=== PATIENT | male | born 1930 | race African-American/Black ===

== ENCOUNTER 2016-09-14 11:47 | Inpatient (IN) | payer MEDICARE, OTHER ==
[~2016-09-14] VITALS: Ht 185.4 cm; Wt 94.8 kg
[2016-09-14 11:58] LABS: BASOPHILS % (AUTO) 0.2 % (0.0-2.0); HEMATOCRIT 24 % (39-51); HEMOGLOBIN 7.9 g/dL (13.5-17.5); LYMPHOCYTES # (AUTO) 0.4 /CMM (0.8-4.8); MEAN CORPUSCULAR HEMOGLOBIN 30 PG (26.0-33.0); MEAN CORPUSCULAR HGB CONC 33 g/dl (31.0-36.0); MEAN CORPUSCULAR VOLUME 90 fL (80-96); MONOCYTES # (AUTO) 0.4 /CMM (0.1-1.30); MONOCYTES % (AUTO) 1.8 % (2.0-12.0); NEUTROPHILS # (AUTO) 19.3 /CMM (1.8-8.9); PLATELET COUNT (AUTO) 306 /CMM (150-450); RDW COEFFICIENT OF VARIATION 14.9 (11.5-15.0); RED BLOOD CELL COUNT(AUTO) 2.68 MIL/uL (4.5-6.0); WHITE BLOOD COUNT (AUTO) 20.1 K/uL (4.3-11.0)
[2016-09-14 12:10] LABS: CALCIUM, SERUM 8.4 mg/dL (8.5-10.1); CARBON DIOXIDE 26 mmol/L (21-32); CHLORIDE 107 mmol/L (98-107); CREATININE 1.6 mg/dL (0.6-1.3); GLUCOSE 95 mg/dL (74-106); SODIUM SERUM 139 mmol/L (136-145); UREA NITROGEN, BLOOD 49 mg/dL (7-18)
[2016-09-14 12:13] LABS: INR 1.01 (0.87-1.13); PROTHROMBIN TIME 10.5 SECS (9.5-12.7)
[2016-09-14 12:17] LABS: TROPONIN I 0.376 ng/mL (0.00-0.056)
[2016-09-14 12:26] LABS: ALANINE AMINOTRANSFERASE 22 U/L (12-78); ALBUMIN 2.3 g/dL (3.4-5.0); ALKALINE PHOSPHATASE 97 U/L (46-116); ASPARTATE AMINOTRANSFERASE 21 U/L (15-37); BILIRUBIN,DIRECT 0.1 mg/dL (0.0-0.2); BILIRUBIN,TOTAL 0.5 mg/dL (0.2-1.0); TOTAL PROTEIN, SERUM 7.3 g/dL (6.4-8.2)
[2016-09-14 12:27] LABS: APPEARANCE,URINE Slightly Cloudy (CLEAR); BILIRUBIN,URINE Negative (NEGATIVE); BLOOD, URINE Negative Ery/uL (NEGATIVE); COLOR,URINE Yellow (YELLOW); KETONES,URINE Negative (NEGATIVE); LEUKOCYTE ESTERASE ,URINE Small (NEGATIVE); NITRITE, URINE Negative (NEGATIVE); PROTEIN,URINE Trace mg/dl (NEGATIVE); UGLUCOSE Negative (NEGATIVE); UROBILINOGEN,URINE 0.2 EU/dL (0.2)
[2016-09-14 12:32] LABS: BACTERIA,URINE 3+ /HPF (None Seen); RBC,URINE NONE SEEN /HPF (0-2); SQUAMOUS EPITHELIAL CELL,UR None Seen /HPF (None Seen)
[2016-09-14 12:44] LABS: LYMPHOCYTES % (MANUAL) 1 % (16-48); NEUTROPHILS % (MANUAL) 99 (42-76)
[2016-09-14] MEDS ORDERED: IV SET PRIMARY PUMP SET 1 EA INFUS.SET MC ONE ×3 (12:56→16:46)
[2016-09-14] MEDS ORDERED: PIPERACILLIN /TAZOBACTAM 3.375 G VIAL IV ONE (12:56)
[2016-09-14] MEDS ORDERED: VIT1CAPS32 PO (12:57)
[2016-09-14] MEDS ORDERED: FOLI1TAB16 PO (12:57)
[2016-09-14] MEDS ORDERED: ASPI81TA2 PO (12:57)
[2016-09-14] MEDS ORDERED: MINO2.5T PO (12:57)
[2016-09-14] MEDS ORDERED: INSU3INS6 SQ (12:57)
[2016-09-14] MEDS ORDERED: FINA5TAB11 PO (12:57)
[2016-09-14] MEDS ORDERED: AMLO10TA2 PO (12:57)
[2016-09-14] MEDS ORDERED: METH250T11 PO (12:57)
[2016-09-14] MEDS ORDERED: TRAM50TA92 PO (12:57)
[2016-09-14] MEDS ORDERED: LEVO100T9 PO (12:57)
[2016-09-14] MEDS ORDERED: PANT40TA2 PO (12:57)
[2016-09-14] MEDS ORDERED: INSU100V3 SQ (12:57)
[2016-09-14] MEDS ORDERED: MEMA10TA PO (12:57)
[2016-09-14] MEDS ORDERED: BENA20TA2 PO (12:57)
[2016-09-14] MEDS ORDERED: ATOR10TA PO (12:57)
[2016-09-14] MEDS ORDERED: ACET-868 PO (12:57)
[2016-09-14] MEDS ORDERED: CLON0.1T PO (12:57)
[2016-09-14] MEDS ORDERED: DONE10TA4 PO (12:57)
[2016-09-14] MEDS ORDERED: DOXA8TAB2 PO (12:57)
[2016-09-14] MEDS ORDERED: LACT10SO PO (12:57)
[2016-09-14] MEDS ORDERED: PIPERACILLIN /TAZOBACTAM 3.375 G in IV D5W 50 ML IV ONE (13:00)
[2016-09-14] MEDS ORDERED: LEVOFLOXACIN 750 MG /D5W 150ML 750 MG in PREMIX 1 EA IV SCH (13:00)
[2016-09-14] MEDS ORDERED: VANCOMYCIN 1 GM in IV D5W 250 ML IV ONE (13:00)
[2016-09-14] MEDS ORDERED: LEVOFLOXACIN 750 MG /D5W 150ML 150 ML IV ONE (13:08)
[2016-09-14] MEDS ORDERED: CLONIDINE HCL 0.1 MG TABLET PO PRN (15:30)
[2016-09-14] MEDS ORDERED: ONDANSETRON HCL/PF 4 MG/2 ML VIAL IVP PRN (15:30)
[2016-09-14] MEDS ORDERED: DEXTROSE 50%-WATER 50 ML DISP.SYRIN IV PRN (15:30)
[2016-09-14] MEDS ORDERED: ACETAMINOPHEN 325 MG TABLET PO PRN (15:30)
[2016-09-14] MEDS ORDERED: Z GUARD REMEDY 2 OZ OINT TP PRN (15:30)
[2016-09-14] MEDS ORDERED: LACTULOSE 10 G/15 ML UDC (PYXIS) PO PRN (15:30)
[2016-09-14 16:00] VITALS: BP 110/54
[2016-09-14] MEDS ORDERED: FEE PK DOSING 1 MIN EA MC ONE (16:36)
[2016-09-14] MEDS: IV NS 0.9% 1,000 ML IV PRN (16:52)
[2016-09-14] MEDS ORDERED: VANCOMYCIN 0.75 GM in IV D5W 250 ML IV SCH (17:00)
[2016-09-14 17:43] VITALS: BP 110/54
[2016-09-14] MEDS: BLOOD SUGAR DIAGNOSTIC 1 EACH STRIP IN SCH ×2 (18:13→22:03)
[2016-09-14] MEDS: INSULIN REGULAR, HUMAN 100 UNIT/ML 3 ML VIAL SQ PRN (18:17)
[2016-09-14] MEDS: MINOXIDIL (2.5MG) 2.5 MG TABLET PO SCH (18:18)
[2016-09-14] MEDS: METHYLDOPA (250MG) 250 MG TABLET PO SCH (18:18)
[2016-09-14 20:00] VITALS: BP 124/58
[2016-09-14] MEDS ORDERED: SECONDARY IV SET 1 EA INFUS.SET MC ONE (21:34)
[2016-09-14] MEDS: CEFEPIME 2 GM in IV D5W 100 ML IV SCH (21:38)
[2016-09-14] MEDS: DONEPEZIL 5 MG TABLET PO SCH (21:58)
[2016-09-14] MEDS: ATORVASTATIN 10 MG TABLET PO SCH (21:58)
[2016-09-14] MEDS: DOXAZOSIN MESYLATE (4 MG) 4 MG TABLET PO SCH (21:58)
[2016-09-14] MEDS: INSULIN DETEMIR 100 UNIT/ML CARTRIDGE SQ SCH (22:08)
[2016-09-15] VITALS (12 sets, daily range): BP systolic 112–133; BP diastolic 53–66
[2016-09-15] MEDS ORDERED: SECONDARY IV SET 1 EA INFUS.SET MC ONE ×2 (05:54→13:09)
[2016-09-15] MEDS: VANCOMYCIN 1 GM in IV D5W 250 ML IV SCH (05:57)
[2016-09-15] MEDS: BLOOD SUGAR DIAGNOSTIC 1 EACH STRIP IN SCH ×4 (06:06→21:53)
[2016-09-15 07:06] LABS: EOSINOPHILS # (AUTO) 0.1 /CMM (0.0-0.7); EOSINOPHILS % (AUTO) 0.6 % (0.0-6.0); HEMATOCRIT 22 % (39-51); HEMOGLOBIN 7.2 g/dL (13.5-17.5); LYMPHOCYTES # (AUTO) 0.4 /CMM (0.8-4.8); LYMPHOCYTES % (AUTO) 3.9 % (20.0-44.0); MEAN CORPUSCULAR HEMOGLOBIN 30 PG (26.0-33.0); MEAN CORPUSCULAR HGB CONC 33 g/dl (31.0-36.0); MEAN CORPUSCULAR VOLUME 91 fL (80-96); MONOCYTES # (AUTO) 0.4 /CMM (0.1-1.30); MONOCYTES % (AUTO) 3.8 % (2.0-12.0); NEUTROPHILS # (AUTO) 10.5 /CMM (1.8-8.9); NEUTROPHILS % (AUTO) 91.7 % (43.0-81.0); PLATELET COUNT (AUTO) 250 /CMM (150-450); RDW COEFFICIENT OF VARIATION 16.4 (11.5-15.0); RED BLOOD CELL COUNT(AUTO) 2.38 MIL/uL (4.5-6.0); WHITE BLOOD COUNT (AUTO) 11.5 K/uL (4.3-11.0)
[2016-09-15 07:37] LABS: ALANINE AMINOTRANSFERASE 21 U/L (12-78); ALBUMIN 1.9 g/dL (3.4-5.0); ALKALINE PHOSPHATASE 84 U/L (46-116); ASPARTATE AMINOTRANSFERASE 18 U/L (15-37); BILIRUBIN,TOTAL 0.4 mg/dL (0.2-1.0); CARBON DIOXIDE 26 mmol/L (21-32); CHLORIDE 105 mmol/L (98-107); CREATININE 1.6 mg/dL (0.6-1.3); GLUCOSE 119 mg/dL (74-106); MAGNESIUM 1.7 mg/dL (1.8-2.4); PHOSPHORUS 4.3 mg/dL (2.5-4.9); POTASSIUM 4.9 mmol/L (3.5-5.1); SODIUM SERUM 138 mmol/L (136-145); TOTAL PROTEIN, SERUM 6.5 g/dL (6.4-8.2); UREA NITROGEN, BLOOD 49 mg/dL (7-18)
[2016-09-15 07:47] LABS: LDL 43 mg/dL (0-99)
[2016-09-15 08:04] LABS: CHOLESTEROL 94 mg/dL (<200); HDL CHOLESTEROL 40 mg/dL (40-60); THYROID STIMULATING HORMONE 12.451 uIU/mL (0.358-3.74); TRIGLYCERIDES 23 mg/dL (30-150)
[2016-09-15] MEDS: FOLIC ACID 1 MG TABLET PO SCH (09:48)
[2016-09-15] MEDS: MEMANTINE HCL 5 MG TABLET PO SCH (09:48)
[2016-09-15] MEDS: FINASTERIDE (5 MG) 5 MG TABLET PO SCH (09:48)
[2016-09-15] MEDS: PANTOPRAZOLE 40 MG TABLET.DR PO SCH (09:49)
[2016-09-15] MEDS: TRAMADOL HCL 50 MG TABLET PO SCH (09:49)
[2016-09-15] MEDS: LEVOTHYROXINE SODIUM 100 MCG TABLET PO SCH (09:49)
[2016-09-15] MEDS: ASPIRIN 81 MG TAB.CHEW PO SCH (09:49)
[2016-09-15] MEDS: BENAZEPRIL HCL 20 MG TABLET PO SCH (09:50)
[2016-09-15] MEDS: MINOXIDIL (2.5MG) 2.5 MG TABLET PO SCH ×2 (09:51→18:11)
[2016-09-15] MEDS: AMLODIPINE BESYLATE 10 MG TABLET PO SCH (09:52)
[2016-09-15] MEDS: CEFEPIME 2 GM in IV D5W 100 ML IV SCH ×2 (09:54→23:38)
[2016-09-15] MEDS ORDERED: Magnesium 1GM/D5W 100ML PREMIX 100 ML IV SCH (12:00)
[2016-09-15] MEDS: METHYLDOPA (250MG) 250 MG TABLET PO SCH ×2 (14:17→17:00)
[2016-09-15] MEDS ORDERED: BLOOD IV SET 1 EA INFUS.SET MC ONE (16:14)
[2016-09-15] MEDS ORDERED: IV NS 0.9% 250 ML IV ONE (16:14)
[2016-09-15] MEDS: LACTOBACILLUS RHAMNOSUS GG 1 EACH CAP.SPRINK PO SCH (18:11)
[2016-09-15] MEDS: INSULIN REGULAR, HUMAN 100 UNIT/ML 3 ML VIAL SQ PRN (21:55)
[2016-09-15] MEDS: INSULIN DETEMIR 100 UNIT/ML CARTRIDGE SQ SCH (22:00)
[2016-09-15] MEDS: DOXAZOSIN MESYLATE (4 MG) 4 MG TABLET PO SCH (22:41)
[2016-09-15] MEDS: ATORVASTATIN 10 MG TABLET PO SCH (22:41)
[2016-09-15] MEDS: DONEPEZIL 5 MG TABLET PO SCH (22:41)
[2016-09-16] MEDS ORDERED: SET RED CAP 1 EA INFUS.SET MC ONE (00:07)
[2016-09-16] MEDS: VANCOMYCIN 1 GM in IV D5W 250 ML IV SCH ×3 (00:21→19:45)
[2016-09-16] MEDS: IV NS 0.9% 1,000 ML IV PRN (00:21)
[2016-09-16 06:59] LABS: CALCIUM, SERUM 7.9 mg/dL (8.5-10.1); CARBON DIOXIDE 23 mmol/L (21-32); CHLORIDE 106 mmol/L (98-107); CREATININE 1.6 mg/dL (0.6-1.3); GLUCOSE 112 mg/dL (74-106); MAGNESIUM 1.9 mg/dL (1.8-2.4); PHOSPHORUS 4.2 mg/dL (2.5-4.9); POTASSIUM 4.8 mmol/L (3.5-5.1); SODIUM SERUM 137 mmol/L (136-145); UREA NITROGEN, BLOOD 50 mg/dL (7-18)
[2016-09-16 07:08] LABS: BASOPHILS % (AUTO) 0.2 % (0.0-2.0); EOSINOPHILS # (AUTO) 0.2 /CMM (0.0-0.7); EOSINOPHILS % (AUTO) 3.1 % (0.0-6.0); HEMATOCRIT 27 % (39-51); HEMOGLOBIN 8.9 g/dL (13.5-17.5); LYMPHOCYTES # (AUTO) 0.7 /CMM (0.8-4.8); LYMPHOCYTES % (AUTO) 8.6 % (20.0-44.0); MEAN CORPUSCULAR HEMOGLOBIN 30 PG (26.0-33.0); MEAN CORPUSCULAR HGB CONC 33 g/dl (31.0-36.0); MEAN CORPUSCULAR VOLUME 90 fL (80-96); MONOCYTES # (AUTO) 0.4 /CMM (0.1-1.30); MONOCYTES % (AUTO) 5.6 % (2.0-12.0); NEUTROPHILS # (AUTO) 6.6 /CMM (1.8-8.9); NEUTROPHILS % (AUTO) 82.5 % (43.0-81.0); PLATELET COUNT (AUTO) 255 /CMM (150-450); RDW COEFFICIENT OF VARIATION 16.3 (11.5-15.0); RED BLOOD CELL COUNT(AUTO) 2.94 MIL/uL (4.5-6.0)
[2016-09-16] MEDS: PANTOPRAZOLE 40 MG TABLET.DR PO SCH (07:30)
[2016-09-16] MEDS: BLOOD SUGAR DIAGNOSTIC 1 EACH STRIP IN SCH ×4 (07:30→21:12)
[2016-09-16 08:00] VITALS: BP 136/69
[2016-09-16] MEDS: TRAMADOL HCL 50 MG TABLET PO SCH ×2 (09:00→09:13)
[2016-09-16] MEDS: FINASTERIDE (5 MG) 5 MG TABLET PO SCH (09:06)
[2016-09-16] MEDS: ASPIRIN 81 MG TAB.CHEW PO SCH (09:06)
[2016-09-16] MEDS: FOLIC ACID 1 MG TABLET PO SCH (09:06)
[2016-09-16] MEDS: LEVOTHYROXINE SODIUM 100 MCG TABLET PO SCH (09:06)
[2016-09-16] MEDS: AMLODIPINE BESYLATE 10 MG TABLET PO SCH (09:06)
[2016-09-16] MEDS: LACTOBACILLUS RHAMNOSUS GG 1 EACH CAP.SPRINK PO SCH ×2 (09:06→17:11)
[2016-09-16] MEDS: BENAZEPRIL HCL 20 MG TABLET PO SCH (09:06)
[2016-09-16] MEDS: METHYLDOPA (250MG) 250 MG TABLET PO SCH ×2 (09:12→17:15)
[2016-09-16] MEDS: MEMANTINE HCL 5 MG TABLET PO SCH (09:13)
[2016-09-16] MEDS: MINOXIDIL (2.5MG) 2.5 MG TABLET PO SCH ×2 (09:13→17:12)
[2016-09-16] MEDS: CEFEPIME 2 GM in IV D5W 100 ML IV SCH ×2 (09:18→20:58)
[2016-09-16 16:00] VITALS: BP 144/59
[2016-09-16 20:00] VITALS: BP 125/55
[2016-09-16] MEDS ORDERED: IV NS 0.9% 1,000 ML ONE (20:12)
[2016-09-16 20:28] VITALS: BP 123/55
[2016-09-16] MEDS: DONEPEZIL 5 MG TABLET PO SCH (21:07)
[2016-09-16] MEDS: DOXAZOSIN MESYLATE (4 MG) 4 MG TABLET PO SCH (21:09)
[2016-09-16] MEDS: ATORVASTATIN 10 MG TABLET PO SCH (21:09)
[2016-09-16] MEDS: INSULIN REGULAR, HUMAN 100 UNIT/ML 3 ML VIAL SQ PRN (21:11)
[2016-09-16] MEDS: INSULIN DETEMIR 100 UNIT/ML CARTRIDGE SQ SCH (22:00)
[2016-09-17 06:29] LABS: BASOPHILS % (AUTO) 0.2 % (0.0-2.0); EOSINOPHILS # (AUTO) 0.2 /CMM (0.0-0.7); HEMATOCRIT 25 % (39-51); HEMOGLOBIN 8.6 g/dL (13.5-17.5); LYMPHOCYTES # (AUTO) 0.7 /CMM (0.8-4.8); LYMPHOCYTES % (AUTO) 7.7 % (20.0-44.0); MEAN CORPUSCULAR HEMOGLOBIN 31 PG (26.0-33.0); MEAN CORPUSCULAR HGB CONC 34 g/dl (31.0-36.0); MEAN CORPUSCULAR VOLUME 90 fL (80-96); MONOCYTES # (AUTO) 0.5 /CMM (0.1-1.30); MONOCYTES % (AUTO) 5.5 % (2.0-12.0); NEUTROPHILS # (AUTO) 7.9 /CMM (1.8-8.9); NEUTROPHILS % (AUTO) 84.6 % (43.0-81.0); PLATELET COUNT (AUTO) 260 /CMM (150-450); RED BLOOD CELL COUNT(AUTO) 2.82 MIL/uL (4.5-6.0); WHITE BLOOD COUNT (AUTO) 9.3 K/uL (4.3-11.0)
[2016-09-17 06:42] LABS: CALCIUM, SERUM 7.9 mg/dL (8.5-10.1); CARBON DIOXIDE 23 mmol/L (21-32); CHLORIDE 105 mmol/L (98-107); CREATININE 1.5 mg/dL (0.6-1.3); GLUCOSE 93 mg/dL (74-106); MAGNESIUM 1.9 mg/dL (1.8-2.4); PHOSPHORUS 3.9 mg/dL (2.5-4.9); POTASSIUM 4.8 mmol/L (3.5-5.1); SODIUM SERUM 137 mmol/L (136-145); UREA NITROGEN, BLOOD 50 mg/dL (7-18)
[2016-09-17] MEDS: BLOOD SUGAR DIAGNOSTIC 1 EACH STRIP IN SCH ×2 (07:15→12:25)
[2016-09-17 08:00] VITALS: BP_SYST 119; BP_DIAS 62; BP_DIAS 92
[2016-09-17] MEDS: FOLIC ACID 1 MG TABLET PO SCH (08:26)
[2016-09-17] MEDS: PANTOPRAZOLE 40 MG TABLET.DR PO SCH (08:26)
[2016-09-17] MEDS: ASPIRIN 81 MG TAB.CHEW PO SCH (08:26)
[2016-09-17] MEDS: FINASTERIDE (5 MG) 5 MG TABLET PO SCH (08:27)
[2016-09-17] MEDS: LACTOBACILLUS RHAMNOSUS GG 1 EACH CAP.SPRINK PO SCH (08:27)
[2016-09-17] MEDS: LEVOTHYROXINE SODIUM 100 MCG TABLET PO SCH (08:27)
[2016-09-17] MEDS: MEMANTINE HCL 5 MG TABLET PO SCH (08:27)
[2016-09-17] MEDS: MINOXIDIL (2.5MG) 2.5 MG TABLET PO SCH (08:27)
[2016-09-17] MEDS: METHYLDOPA (250MG) 250 MG TABLET PO SCH (08:28)
[2016-09-17] MEDS ORDERED: AMPI500C11 PO (08:58)
[2016-09-17 09:00] VITALS: BP 109/60
[2016-09-17] MEDS: AMLODIPINE BESYLATE 10 MG TABLET PO SCH (09:00)
[2016-09-17] MEDS: BENAZEPRIL HCL 20 MG TABLET PO SCH (09:00)
[2016-09-17] MEDS: TRAMADOL HCL 50 MG TABLET PO SCH (09:00)
[2016-09-17] MEDS: CEFEPIME 2 GM in IV D5W 100 ML IV SCH (09:23)
[2016-09-17] MEDS: INSULIN REGULAR, HUMAN 100 UNIT/ML 3 ML VIAL SQ PRN (12:28)
== END 2016-09-17 13:15 | DRG 871 ==
LOC: ER 11:50 → MED 14:22
PROVIDERS: ADMIT Nurse Practitioner Acute Care; ATTEND Nurse Practitioner Acute Care
PROC: 30233N1 Transfusion of Nonautologous Red Blood Cells into Peripheral Vein, Percutaneous Approach (ICD-10-PCS; principal; 2016-09-15)
DX: A41.9 Sepsis, unspecified organism (principal); J18.9 Pneumonia, unspecified organism; I21.4 Non-ST elevation (NSTEMI) myocardial infarction; J96.01 Acute respiratory failure with hypoxia; N17.0 Acute kidney failure with tubular necrosis; N39.0 Urinary tract infection, site not specified; J90 Pleural effusion, not elsewhere classified; Z66 Do not resuscitate; Z51.5 Encounter for palliative care; R65.20 Severe sepsis without septic shock; B95.2 Enterococcus as the cause of diseases classified elsewhere; D63.8 Anemia in other chronic diseases classified elsewhere; E03.9 Hypothyroidism, unspecified; E78.5 Hyperlipidemia, unspecified; E88.09 Other disorders of plasma-protein metabolism, not elsewhere classified; K21.9 Gastro-esophageal reflux disease without esophagitis; N18.9 Chronic kidney disease, unspecified; I12.9 Hypertensive chronic kidney disease with stage 1 through stage 4 chronic kidney disease, or unspecified chronic kidney disease; N40.1 Benign prostatic hyperplasia with lower urinary tract symptoms; E11.22 Type 2 diabetes mellitus with diabetic chronic kidney disease; F03.90 Unspecified dementia, unspecified severity, without behavioral disturbance, psychotic disturbance, mood disturbance, and anxiety; L89.152 Pressure ulcer of sacral region, stage 2; L89.322 Pressure ulcer of left buttock, stage 2; S81.802A Unspecified open wound, left lower leg, initial encounter; S81.801A Unspecified open wound, right lower leg, initial encounter; X58.XXXA Exposure to other specified factors, initial encounter; Y93.9 Activity, unspecified; Y92.129 Unspecified place in nursing home as the place of occurrence of the external cause; L89.611 Pressure ulcer of right heel, stage 1
CPT/HCPCS: 36415; 71010-TC; 76770-TC; 80048-TC; 80053-TC; 80061-TC; 80076-TC; 80202-TC; 81000-TC; 82962-TC; 83605-TC; 83735-TC; 84100-TC; 84443-TC; 84484-TC; 85025-TC; 85730-TC; 86850-TC; 86921-TC; 87040-TC; 87081-TC; 87086-TC; 87186-TC; 94799-TC; A4216; A4606; J0692; J1815; J1956; J2543; J3370; J3475; J7030; J7050; J7060; P9016-BL; Z7610

== ENCOUNTER 2016-11-01 22:18 | Inpatient (IN) | payer MEDICARE, OTHER ==
[~2016-11-01] VITALS: Ht 185.4 cm; Wt 104.3 kg
[~2016-11-01 22:18] MED LIST: ACET-868 PO; AMLO10TA2 PO; AMPI500C11 PO; ASPI81TA2 PO; ATOR10TA PO; BENA20TA2 PO; CLON0.1T PO; DONE10TA4 PO; DOXA8TAB2 PO; FINA5TAB11 PO; FOLI1TAB16 PO; INSU100V3 SQ; INSU3INS6 SQ; LACT10SO PO; LEVO100T9 PO; MEMA10TA PO; METH250T11 PO; MINO2.5T PO; PANT40TA2 PO; TRAM50TA92 PO; VIT1CAPS32 PO
--- NOTE | 2016-11-01 22:25 | NUR ---
TO BED 3 AN 86 YO MALE PATIENT BB AMBULANCE FROM [facility]; INCREASED ALOC. UPON ARRIVAL TO ER, PATIENT IS AWAKE, RESPONSIVE TO LIGHT PAIN, DOES NOT FOLLOW INSTRUCTIONS, DOES NOT ANSWER TO QUESTIONS, AND VERBALIZED UNCOMPREHENSIBLE WORDS. BREATHING EVEN AND UNLABORED. NONDIAPHORETIC, AFEBRILE, NSR ON THE MONITOR, BP IS 85/49. ONGOING CARDIAC AND VS MONITORING. NOTED WITH ENLARGE SCROTUM. GOWNED. DR BARBOSA AT BEDSIDE TO [facility].
[2016-11-01] MEDS ORDERED: IV NS 0.9% 1,000 ML BAG IV ONE (22:30)
[2016-11-01 23:09] LABS: SERUM AMMONIA 20 umol/L (11-32)
[2016-11-01 23:11] LABS: BASOPHILS % (AUTO) 0.3 % (0.0-2.0); EOSINOPHILS % (AUTO) 0.1 % (0.0-6.0); HEMATOCRIT 24 % (39-51); HEMOGLOBIN 7.8 g/dL (13.5-17.5); LYMPHOCYTES # (AUTO) 0.8 /CMM (0.8-4.8); LYMPHOCYTES % (AUTO) 12.4 % (20.0-44.0); MEAN CORPUSCULAR HEMOGLOBIN 29 PG (26.0-33.0); MEAN CORPUSCULAR HGB CONC 32 g/dl (31.0-36.0); MEAN CORPUSCULAR VOLUME 91 fL (80-96); MONOCYTES # (AUTO) 0.2 /CMM (0.1-1.30); MONOCYTES % (AUTO) 3.4 % (2.0-12.0); NEUTROPHILS # (AUTO) 5.5 /CMM (1.8-8.9); NEUTROPHILS % (AUTO) 83.8 % (43.0-81.0); PLATELET COUNT (AUTO) 111 /CMM (150-450); RDW COEFFICIENT OF VARIATION 19.6 (11.5-15.0); RED BLOOD CELL COUNT(AUTO) 2.65 MIL/uL (4.5-6.0); WHITE BLOOD COUNT (AUTO) 6.6 K/uL (4.3-11.0)
[2016-11-01 23:15] LABS: TROPONIN I 0.135 ng/mL (0.00-0.056)
[2016-11-01 23:20] LABS: ACETAMINOPHEN 2 ug/ml (10-30); ALANINE AMINOTRANSFERASE 32 U/L (12-78); ALBUMIN 2.6 g/dL (3.4-5.0); ALKALINE PHOSPHATASE 83 U/L (46-116); ASPARTATE AMINOTRANSFERASE 34 U/L (15-37); BILIRUBIN,DIRECT 0.2 mg/dL (0.0-0.2); BILIRUBIN,TOTAL 0.8 mg/dL (0.2-1.0); CALCIUM, SERUM 7.8 mg/dL (8.5-10.1); CARBON DIOXIDE 31 mmol/L (21-32); CHLORIDE 101 mmol/L (98-107); CREATININE 4.2 mg/dL (0.6-1.3); GLUCOSE 123 mg/dL (74-106); POTASSIUM 4.7 mmol/L (3.5-5.1); SODIUM SERUM 139 mmol/L (136-145); THYROID STIMULATING HORMONE 12.367 uIU/mL (0.358-3.74); TOTAL PROTEIN, SERUM 5.8 g/dL (6.4-8.2)
[2016-11-01 23:21] LABS: ALCOHOL, BLOOD < 3 mg/dL (0-0)
[2016-11-01 23:22] LABS: UREA NITROGEN, BLOOD 86 mg/dL (7-18)
--- NOTE | 2016-11-01 23:23 | NUR ---
patient taken to ct,.
[2016-11-01 23:46] LABS: BAND % (MANUAL) 40 % (0.0-5.0); LYMPHOCYTES % (MANUAL) 14 % (16-48); MONOCYTES % (MANUAL) 1 % (0-11.0); NEUTROPHILS % (MANUAL) 43 (42-76); PROMYELOCYTES % 1 % (0-0); REACTIVE LYMPHOCYTES 1 % (0-0)
[2016-11-01 23:49] LABS: B-TYPE NATRIURETIC PEPTIDE 23424 PG/ML (0-125)
[2016-11-02] VITALS (89 sets, daily range): BP systolic 74–154; BP diastolic 34–87
[2016-11-02 00:25] LABS: INR 1.17 (0.87-1.13); PROTHROMBIN TIME 12.6 SECS (9.5-12.7)
[2016-11-02] MEDS ORDERED: ASPIRIN 300 MG/SUPP.RECT RC ONE ×2 (00:30→00:32)
--- NOTE | 2016-11-02 00:30 | NUR ---
RT FINA AT BEDSIDE AND PATIENT WAS PLACED ON BIPAP INH W FOLLOWING SETTINGS, 15/5, RATE 20, FIO2 40%, SATTING AT 96% AT THIS TIME. KEPT HOB ELEVATED. WILL CONTINUE TO MONITOR.
[2016-11-02] MEDS ORDERED: FEE EMEERGENCY 1 MIN EA MC ONE (01:00)
[2016-11-02] MEDS ORDERED: PROPOFOL 100 ML IV ONE ×3 (01:13→06:59)
--- NOTE | 2016-11-02 01:20 | NUR ---
0105 - RECEIVED ORDER FROM DR BARBOSA FOR INTUBATION. RT FINA AND RT MEMO AT BEDSIDE. 0110 - ETOMIDATE 30MG, AND ROCS 100MG GIVEN IVP ON THE LAC G18 PRIOR TO INTUBATION. 0113 - DR BARBOSA PLACED ETT 8CM AND 23CM ON THE LIP. GUILLAUME LUNG SOUNDS HEARD, COLOR CHANGE NOTED ON CAPNO. SATTING AT 98% AT THIS TIME. ONGOING MONITOR.
--- NOTE | 2016-11-02 01:25 | NUR ---
RECEIVED ORDERS FROM DR BARBOSA TO GIVEN 2L OF NS BOLUS, WILL CARRY OUT.
[2016-11-02] MEDS ORDERED: ETOMIDATE 2 MG/ML VIAL IV ONE (01:30)
[2016-11-02] MEDS ORDERED: ROCURONIUM BROMIDE 100 MG/10 ML VIAL IV ONE (01:30)
--- NOTE | 2016-11-02 01:32 | NUR ---
CALLED LAB TO VERIFY URINE LABEL AND CORRECTED MISTAKE. SAMPLE MISLABELLED. PLEASE DISREGARD URINE RESULTS DATED 11/02/[address] BARBOSA NOTIFIED.
--- NOTE | 2016-11-02 01:35 | NUR ---
RECEIVED ORDERS FOR PROPOFOL DRIP WITH TITRATION PER PROTOCOL.
[2016-11-02 02:09] LABS: ABG BASE EXCESS 3.8 mmol/L; ABG OXYGEN SATURATION 64.2 % (92.0-98.5); ABG PCO2 52.7 mmHg (35.0-45.0); ABG PH 7.369 (7.350-7.450); ABG PO2 35.5 mmHg (75.0-100.0); COHb 1.7 % (0.5-1.5); MetHb 0.8 % (0.0-1.5); O2Hb 62.6 % (94.0-97.0); PEEP,BG 5 cm H2O; SITE, ABG A-Line; VENT MODE, BG A/C 20 500 90% +5; VT, ABG 500 mL
--- NOTE | 2016-11-02 02:19 | NUR ---
IRASEMA TRINIDAD COLLECTIONS ANALYST AT BEDSIDE EVAL.
--- NOTE | 2016-11-02 02:20 | NUR ---
REPORT GIVEN TO THOMAS BUSTAMANTE FOR ICU ADMISSION AND EVELYNE.
--- NOTE | 2016-11-02 02:40 | NUR ---
urine collected from read of about 3cc reddish urine, called lab for machine pecan picker.
--- NOTE | 2016-11-02 02:44 | NUR ---
TRANSFERRED PATIENT TO ICU ROOM 253 VIA ALS PROTOCOL, NO INCIDENT NOTED. MAINTAINED PATENT AIRWAY, VSS. SELAM BUSTAMANTE AT BEDSIDE. DR BARBOSA NOTIFIED DIGITAL ANALYST IRASEMA TRINIDAD VIA PHONE TO DISREGARD FIRST URINE THAT RESULTED IT IS A MISTAKE.
[2016-11-02 02:58] LABS: APPEARANCE,URINE CLOUDY (CLEAR); BILIRUBIN,URINE 2+ (NEGATIVE); BLOOD, URINE 3+ Ery/uL (NEGATIVE); COLOR,URINE BROWN (YELLOW); KETONES,URINE 1+ (NEGATIVE); LEUKOCYTE ESTERASE ,URINE 1+ (NEGATIVE); NITRITE, URINE POSITIVE (NEGATIVE); PROTEIN,URINE 3+ mg/dl (NEGATIVE); UGLUCOSE NEGATIVE (NEGATIVE)
[2016-11-02] MEDS ORDERED: ACETAMINOPHEN 325 MG TABLET PO PRN (03:00)
[2016-11-02] MEDS ORDERED: MAGNESIUM HYDROXIDE 30 ML UDC PO PRN (03:00)
[2016-11-02] MEDS ORDERED: ONDANSETRON HCL/PF 4 MG/2 ML VIAL IVP PRN (03:00)
[2016-11-02] MEDS ORDERED: MAG HYDROX/AL HYDROX/SIMETH 30 ML UDC PO PRN (03:00)
--- NOTE | 2016-11-02 03:00 | NUR ---
REGIONAL TRAINER - NOTES - PT ADMITTED TO ICU FOR RESP FAILURE, INTUBATED. SEDATED ON DIPRIVAN. PT WAS GIVEN 2.7 L IN ER. PT IS IN SR HR 70S, SBP >90. PT HAS 8.0 ETT/ 23 AT LIP, AC 20 500 100% 5.0. PT HAS F/C WITH MINIMAL URINE OUTPUT SPARKLE. PT IS HAVING MUCOID FOUL SMELLING DIARRHEA. PT HAS R AC 18G AND L AC 18G. SKIN ISSUES NOTED, 2CM SACRAL PRESSURE ULCER. WILL CONTINUE TO MONITOR
[2016-11-02 03:12] LABS: BACTERIA,URINE 3+ /HPF (None Seen); RBC,URINE TOO NUMEROUS TO COUN /HPF (0-2); SQUAMOUS EPITHELIAL CELL,UR Rare /HPF (None Seen)
[2016-11-02 03:14] LABS: URINE AMORPHOUS URATE Moderate /HPF (None Seen)
[2016-11-02] MEDS ORDERED: LEVOFLOXACIN 500 MG /D5W 100ML 100 ML IV ONE (03:28)
[2016-11-02] MEDS ORDERED: LEVOFLOXACIN 500 MG /D5W 100ML 500 MG in PREMIX 1 EA IV SCH (03:30)
[2016-11-02] MEDS: IV NS 0.9% 250 ML IV PRN (03:39)
[2016-11-02] MEDS ORDERED: CEFEPIME 1 GM VIAL ONE (03:39)
[2016-11-02] MEDS: PROPOFOL 100 ML IV PRN ×3 (04:18→17:24)
[2016-11-02] MEDS ORDERED: CEFEPIME 2 GM in IV D5W 100 ML IV SCH (05:00)
[2016-11-02] MEDS ORDERED: VANCOMYCIN 1 GM VIAL ONE (05:50)
--- NOTE | 2016-11-02 05:54 | NUR ---
CALLED [facility]IST BEAUTY THERAPIST TO DOSE VANCO, HE SAID TO GIVE 1G OF VANCO NOW, PHARMACY WILL FIGURE OUT SCHEDULE LATER
[2016-11-02] MEDS ORDERED: VANCOMYCIN 1 GM in IV D5W 250 ML IV SCH (06:00)
[2016-11-02 06:01] LABS: ABG BASE EXCESS 6.4 mmol/L; ABG OXYGEN SATURATION 96.7 % (92.0-98.5); ABG PCO2 44.1 mmHg (35.0-45.0); ABG PH 7.462 (7.350-7.450); ABG PO2 101.3 mmHg (75.0-100.0); AaDO2 422.8 mmHg; COHb 0.8 % (0.5-1.5); PEEP,BG 5 cm H2O; SITE, ABG Right Radial
--- NOTE | 2016-11-02 06:04 | NUR ---
ABG DONE. RN NOTIFIED WITH THE RESULT. pH 7.46, CO2 44, PaO2 101, HCO3 30.
--- NOTE | 2016-11-02 07:27 | NUR ---
INITIAL SOCIAL WELFARE ADMINISTRATOR NOTE RCVD PT SEDATED ON DIPRIVAN, INTUBATED. ETT 8.0 23 AT LIP. SHOWING NO S/O DISTRESS OR PAIN. SR ON TELE MONITOR. TOLERATING ORDERED VENT SETTINGS WELL. BILATERAL SOFT WRISTS RESTRAINTS IN PLACE. CIRCULATION CHECKS PERFORMED. LINN IN PLACE DRAINING CONCENTRATED URINE. IV SITES C/D/I/PATENT. NO S/O INFILTRATION/PHLEBITIS OBSERVED. IVF INFUSING. PT NPO AT THIS TIME. WILL CONTINUE TO MONITOR FOR SAFETY AND COMFORT. BED IN LOW AND LOCKED POSITION.
[2016-11-02] MEDS: LEVOTHYROXINE SODIUM 100 MCG TABLET PO SCH (07:30)
[2016-11-02] MEDS: PANTOPRAZOLE 40 MG TABLET.DR PO SCH (07:30)
[2016-11-02] MEDS ORDERED: IV NS 0.9% 500 ML IV ONE ×3 (08:30→16:00)
[2016-11-02] MEDS ORDERED: IV NS 0.9% 1,000 ML BAG IV PRN (08:30)
--- NOTE | 2016-11-02 08:30 | NUR ---
HORSESHOER NOTE EPIC PAGED. SPOKE WITH DR. CANELA, PT'S SBP 70-80s. SEDATION DISCONTINUED FOR SEDATION VACATION. PT AWAKE AND ALERT TO SELF, ABLE TO FOLLOW COMMANDS. RCVD ORDER FROM DR. CANELA TO GIVE NS BOLUS AND START PT ON IVF. ORDERS CARRIED OUT. WILL CONTINUE TO MONITOR. PT'S SON, AIDEN CALLED INQUIRING ABOUT PT. HE WAS UPDATED ON PT'S CONDITION.
[2016-11-02] MEDS: MEMANTINE HCL 5 MG TABLET PO SCH (09:00)
[2016-11-02] MEDS: IV NS 0.9% 1,000 ML IV PRN ×2 (09:00→18:28)
[2016-11-02] MEDS: ASPIRIN 81 MG TAB.CHEW PO SCH (09:00)
[2016-11-02] MEDS: ASCORBIC ACID 500 MG TABLET PO SCH (09:00)
[2016-11-02] MEDS ORDERED: LACTULOSE 10 G/15 ML UDC (PYXIS) PO PRN (09:00)
[2016-11-02] MEDS: FINASTERIDE (5 MG) 5 MG TABLET PO SCH (09:00)
[2016-11-02] MEDS: FOLIC ACID 1 MG TABLET PO SCH (09:00)
[2016-11-02] MEDS ORDERED: METHYLDOPA (250MG) 250 MG TABLET PO SCH (09:00)
[2016-11-02] MEDS ORDERED: FEE PK DOSING 1 MIN EA MC ONE (09:01)
--- NOTE | 2016-11-02 09:17 | NUR ---
FIBER OPTIC ASSEMBLY WORKER NOTE IRASEMA MECHANICAL TECHNICAL SERVICE SPECIALIST AT PT'S BEDSIDE INFORMED THAT PT'S BLOOD IN URINE. LOW UOP OF 20 ML SO FAR ON MY SHIFT AND 15ML SINCE ADMISSION IN ICU FOR JAW SKINNER. RENAL LABS TRENDING UP. HE STATED THAT WILL CONSULT NEPHRO. HE WAS UPDATED ABOUT PT'S LOW SBP EARLIER THIS AM AND IVF ORDERS BEING CARRIED OUT. IRASEMA AWARE OF PT'S HGB 7.8, HE'LL ORDER REPEAT LABS FOR TODAY. NO MEDS UNTIL CLEARED BY DR. OSHEA. NO NG TUBE AT THIS TIME. PICC LINE ORDER REQUESTED. CONSENT OBTAINED FROM PT'S SONAIDEN OVER THE PHONE. Addendum: 11/02/16 at 1607 by EN PALOMO RN PER NIGEL, SENIOR COMMERCIAL LOAN OFFICER PHILLIP ACOSTA TO COME AND INSERT PICC LINE.
[2016-11-02 09:45] LABS: BASOPHILS % (AUTO) 0.3 % (0.0-2.0); HEMATOCRIT 24 % (39-51); HEMOGLOBIN 7.8 g/dL (13.5-17.5); LYMPHOCYTES # (AUTO) 0.7 /CMM (0.8-4.8); LYMPHOCYTES % (AUTO) 11.3 % (20.0-44.0); MEAN CORPUSCULAR HEMOGLOBIN 30 PG (26.0-33.0); MEAN CORPUSCULAR HGB CONC 32 g/dl (31.0-36.0); MEAN CORPUSCULAR VOLUME 92 fL (80-96); MONOCYTES # (AUTO) 0.5 /CMM (0.1-1.30); MONOCYTES % (AUTO) 8.5 % (2.0-12.0); NEUTROPHILS % (AUTO) 79.9 % (43.0-81.0); PLATELET COUNT (AUTO) 111 /CMM (150-450); RDW COEFFICIENT OF VARIATION 19.5 (11.5-15.0); RED BLOOD CELL COUNT(AUTO) 2.62 MIL/uL (4.5-6.0); WHITE BLOOD COUNT (AUTO) 6.2 K/uL (4.3-11.0)
[2016-11-02 09:55] LABS: CALCIUM, SERUM 7.6 mg/dL (8.5-10.1); CARBON DIOXIDE 29 mmol/L (21-32); CHLORIDE 102 mmol/L (98-107); CREATININE 4.3 mg/dL (0.6-1.3); GLUCOSE 115 mg/dL (74-106); MAGNESIUM 1.7 mg/dL (1.8-2.4); PHOSPHORUS 4.2 mg/dL (2.5-4.9); POTASSIUM 4.5 mmol/L (3.5-5.1); SODIUM SERUM 140 mmol/L (136-145)
--- NOTE | 2016-11-02 09:57 | NUR ---
WOUND CARE CONSULT PATIENT SEEN AND SKIN INTEGRITY ASSESSMENT DONE. PLEASE SEE CREASING AND CUTTING PRESS FEEDER ASSESSMENT IN PCS ALONG WITH ALL RECOMMENDATIONS FOR TODAY. PATIENT WITH CURRENT SHELDON AT 10. PATIENT ON JAVIER ISOFLEX LOW AIRSS SPECIALTY BED FOR SKIN MANAGMENT AND TREATMENT. ALL TREATMENT PLANS DISCUSSED WITH ACNP AND IN AGREEMENT. ALL DISCUSSED WITH NURSING AT THE BEDSIDE. PATIENT NOTED TO HAVE MULTIPLE CO-MORBIDITIES AT THIS TIME. Addendum: 11/02/16 at 0959 by ALANIS NIELSON WNDNU Amended: Links added.
[2016-11-02 09:58] LABS: UREA NITROGEN, BLOOD 83 mg/dL (7-18)
[2016-11-02] MEDS ORDERED: HYDROGEL DRESSING 90 GM TUBE TP PRN (10:00)
[2016-11-02 10:08] LABS: BAND % (MANUAL) 46 % (0.0-5.0); LYMPHOCYTES % (MANUAL) 6 % (16-48); MONOCYTES % (MANUAL) 4 % (0-11.0); NEUTROPHILS % (MANUAL) 44 (42-76)
[2016-11-02] MEDS ORDERED: FUROSEMIDE 40 MG/4 ML VIAL IV ONE (10:30)
--- NOTE | 2016-11-02 11:24 | NUR ---
PT ORALLY INTUBATED WITH 8.0 ET-TUBE SECURED AT 23CM. SETTINGS CHANGED BY DR. OSHEA AC 14, 450 PEEP 5 KEEP SATS ABOVE 94%. PT SEDATED. B/S EQUAL ALARMS SET AND AUDIBLE. ZERO DISTRESS NOTED AT THIS TIME AMBUBAG AT HEAD OF BED. ABG IN AM PER DR OSHEA.
--- NOTE | 2016-11-02 12:41 | NUR ---
ELECTRICIAN'S HELPER NOTE PT'S SBP 70-80s LISSETH VILLALPANDO INFORMED. RCVD ORDER TO GIVE 2ND BOLUS OF NS. WILL CONTINUE TO MONITOR. Addendum: 11/02/16 at 1607 by EN PALOMO RN PHILLIP SOLORZANO TO COME AND INSERT PICC LINE. CONSENT IN CHART.
[2016-11-02] MEDS: HYDROGEL DRESSING 90 GM TUBE TP SCH (13:45)
[2016-11-02] MEDS ORDERED: BUMETANIDE INJ 0.25 MG/ML VIAL IV ONE (15:30)
--- NOTE | 2016-11-02 15:47 | NUR ---
FOREST FIRE WARDEN NOTE PT HYPOTENSIVE AGAIN. LISSETH VILLALPANDO CALLED 3RD ORDER FOR NS BOLUS RCVD AND CARRIED OUT. WILL CONTINUE TO MONITOR PT. PICC LINE INSERTION PENDING PHILLIP ACOSTA TO COME AND INSERT. IRASEMA AWARE THAT LINE IS NOT AVAILABLE YET.
[2016-11-02] MEDS ORDERED: Magnesium 1GM/D5W 100ML PREMIX PIGGYBACK IV STA (17:40)
--- NOTE | 2016-11-02 18:51 | NUR ---
ENDING BRAND SALES CONSULTANT NOTE PT REMAINS INTUBATED, VITAL SIGNS STABLE AT THIS TIME. ST/SR ON TELE. RESTRAINTS IN PLACE. TOLERATING ORDERED VENT SETTINGS. LINN DRAINING TEA COLORED URINE. IV SITES C/D/I/PATENT. PT'S CARE ENDORSED TO SHIPWRIGHT SUPERVISOR RN FOR CONTINUITY OF CARE. BED IN LOW AND LOCKED POSITION.
[2016-11-02] MEDS: NOREPINEPHRINE 16 MG in IV D5W 500 ML IV PRN (20:04)
[2016-11-02] MEDS: INSULIN DETEMIR 100 UNIT/ML CARTRIDGE SQ SCH (21:05)
[2016-11-02] MEDS: ATORVASTATIN 10 MG TABLET PO SCH (21:05)
[2016-11-02] MEDS ORDERED: DONEPEZIL 5 MG TABLET PO SCH (22:00)
[2016-11-03] VITALS (107 sets, daily range): BP systolic 79–151; BP diastolic 30–72
[2016-11-03] MEDS: PROPOFOL 100 ML IV PRN ×5 (00:07→23:59)
[2016-11-03 04:44] LABS: BASOPHILS % (AUTO) 0.1 % (0.0-2.0); EOSINOPHILS % (AUTO) 0.7 % (0.0-6.0); HEMATOCRIT 25 % (39-51); HEMOGLOBIN 8.2 g/dL (13.5-17.5); MEAN CORPUSCULAR HEMOGLOBIN 30 PG (26.0-33.0); MEAN CORPUSCULAR HGB CONC 33 g/dl (31.0-36.0); MEAN CORPUSCULAR VOLUME 92 fL (80-96); MONOCYTES # (AUTO) 0.3 /CMM (0.1-1.30); MONOCYTES % (AUTO) 5.6 % (2.0-12.0); NEUTROPHILS # (AUTO) 4.3 /CMM (1.8-8.9); NEUTROPHILS % (AUTO) 75.6 % (43.0-81.0); PLATELET COUNT (AUTO) 116 /CMM (150-450); RDW COEFFICIENT OF VARIATION 19.7 (11.5-15.0); RED BLOOD CELL COUNT(AUTO) 2.72 MIL/uL (4.5-6.0); WHITE BLOOD COUNT (AUTO) 5.7 K/uL (4.3-11.0)
[2016-11-03 05:06] LABS: ALANINE AMINOTRANSFERASE 35 U/L (12-78); ALBUMIN 2.3 g/dL (3.4-5.0); ALKALINE PHOSPHATASE 78 U/L (46-116); ASPARTATE AMINOTRANSFERASE 54 U/L (15-37); BILIRUBIN,TOTAL 0.6 mg/dL (0.2-1.0); CALCIUM, SERUM 7.8 mg/dL (8.5-10.1); CARBON DIOXIDE 32 mmol/L (21-32); CHLORIDE 102 mmol/L (98-107); CHOLESTEROL 63 mg/dL (<200); CREATINE KINASE, TOTAL 951 U/L (39-308); CREATININE 4.2 mg/dL (0.6-1.3); GLUCOSE 84 mg/dL (74-106); HDL CHOLESTEROL 12 mg/dL (40-60); LDL 18 mg/dL (0-99); MAGNESIUM 1.9 mg/dL (1.8-2.4); PHOSPHORUS 4.6 mg/dL (2.5-4.9); POTASSIUM 4.4 mmol/L (3.5-5.1); SODIUM SERUM 139 mmol/L (136-145); TOTAL PROTEIN, SERUM 5.7 g/dL (6.4-8.2); TRIGLYCERIDES 76 mg/dL (30-150)
[2016-11-03 05:13] LABS: UREA NITROGEN, BLOOD 86 mg/dL (7-18)
[2016-11-03] MEDS: CEFEPIME 2 GM in IV D5W 100 ML IV SCH (05:26)
[2016-11-03 05:33] LABS: CREATINE KINASE MB 5.4 ng/mL (0-3.6)
[2016-11-03] MEDS: PANTOPRAZOLE 40 MG TABLET.DR PO SCH (07:30)
[2016-11-03] MEDS: LEVOTHYROXINE SODIUM 100 MCG TABLET PO SCH (07:30)
--- NOTE | 2016-11-03 07:51 | NUR ---
RT PT RECEIVED ORALLY INTUBATED WITH A 8.0 ETT SECURED AT 23CM AT THE LIP LINE ON THE VENT. VENT ALARMS ARE SET AND AUDIBLE WITH BVM BY BEDSIDE. GYROSCOPIC INSTRUMENT TESTER CUFF PRESSURE NOTED. VENT IS PLUGGED INTO RED OUTLET. NO RESPIRATORY DISTRESS NOTED AT THIS TIME, WILL CONTINUE TO MONITOR. Addendum: 11/03/16 at 1758 by PABLO ALVARENGA RT Amended: Links added.
--- NOTE | 2016-11-03 08:30 | NUR ---
LIQUID HYDROGEN PLANT OPERATORMegan Ann LEAD MAN OVER ALL DIES IN PATTERN SHOP at bedside. Obtained orders to start pt on CVP monitoring. Orders placed. 0900- CVP monitoring set up. First reading= 17. LEAD MAN OVER ALL DIES IN PATTERN SHOP at bedside and aware. Will continue to monitor.
[2016-11-03] MEDS: FOLIC ACID 1 MG TABLET PO SCH (09:00)
[2016-11-03] MEDS: FINASTERIDE (5 MG) 5 MG TABLET PO SCH (09:00)
[2016-11-03] MEDS: ASPIRIN 81 MG TAB.CHEW PO SCH (09:00)
[2016-11-03] MEDS: MEMANTINE HCL 5 MG TABLET PO SCH (09:00)
[2016-11-03] MEDS: ASCORBIC ACID 500 MG TABLET PO SCH (09:00)
--- NOTE | 2016-11-03 09:00 | NUR ---
HOTEL GENERAL MANAGER- Sedation Vacation done. Diprivan turned off. Pt opens eyes, able to follow some simple commands (nods head, unable to buyer grain hands).Diprivan re-started per protocol at 20 mcg/min. Will continue to monitor.
[2016-11-03 09:13] LABS: ABG BASE EXCESS 5.2 mmol/L; ABG OXYGEN SATURATION 95.6 % (92.0-98.5); ABG PCO2 49.2 mmHg (35.0-45.0); ABG PO2 81.5 mmHg (75.0-100.0); AaDO2 183.4 mmHg; COHb 0.9 % (0.5-1.5); MetHb 0.5 % (0.0-1.5); O2Hb 94.3 % (94.0-97.0); PEEP,BG 5 cm H2O; SITE, ABG Right Radial; VT, ABG 450 mL
[2016-11-03] MEDS: HYDROGEL DRESSING 90 GM TUBE TP SCH (09:14)
[2016-11-03] MEDS: IV NS 0.9% 1,000 ML IV PRN (12:25)
[2016-11-03] MEDS: NOREPINEPHRINE 16 MG in IV D5W 500 ML IV PRN (17:57)
--- NOTE | 2016-11-03 20:00 | NUR ---
CREDIT DIRECTOR - NOTES - PT SEDATED ON DIPRIVAN, INTUBATED. ETT 8.0 23 AT LIP. SHOWING NO S/O DISTRESS OR PAIN. SR ON TELE MONITOR. TOLERATING ORDERED VENT SETTINGS WELL. BILATERAL SOFT WRISTS RESTRAINTS IN PLACE. CIRCULATION CHECKS PERFORMED. LINN IN PLACE DRAINING CONCENTRATED URINE. IV SITES C/D/I/PATENT. NO S/O INFILTRATION/PHLEBITIS OBSERVED. IVF INFUSING. PT NPO AT THIS TIME. WILL CONTINUE TO MONITOR FOR SAFETY AND COMFORT. BED IN LOW AND LOCKED POSITION.
[2016-11-03] MEDS: INSULIN DETEMIR 100 UNIT/ML CARTRIDGE SQ SCH (21:07)
[2016-11-03] MEDS: ATORVASTATIN 10 MG TABLET PO SCH (21:07)
[2016-11-03] MEDS ORDERED: LEVOFLOXACIN 500 MG /D5W 100ML 500 MG in PREMIX 1 EA IV SCH (23:00)
[2016-11-04] VITALS (82 sets, daily range): BP systolic 89–135; BP diastolic 41–66
[2016-11-04] MEDS: PROPOFOL 100 ML IV PRN ×5 (03:59→22:23)
[2016-11-04] MEDS: CEFEPIME 2 GM in IV D5W 100 ML IV SCH (04:03)
[2016-11-04 05:13] LABS: BASOPHILS % (AUTO) 0.2 % (0.0-2.0); EOSINOPHILS # (AUTO) 0.2 /CMM (0.0-0.7); EOSINOPHILS % (AUTO) 2.9 % (0.0-6.0); HEMATOCRIT 25 % (39-51); LYMPHOCYTES % (AUTO) 16.5 % (20.0-44.0); MEAN CORPUSCULAR HEMOGLOBIN 30 PG (26.0-33.0); MEAN CORPUSCULAR HGB CONC 33 g/dl (31.0-36.0); MEAN CORPUSCULAR VOLUME 91 fL (80-96); MONOCYTES # (AUTO) 0.2 /CMM (0.1-1.30); MONOCYTES % (AUTO) 2.7 % (2.0-12.0); NEUTROPHILS # (AUTO) 4.5 /CMM (1.8-8.9); NEUTROPHILS % (AUTO) 77.7 % (43.0-81.0); PLATELET COUNT (AUTO) 122 /CMM (150-450); RDW COEFFICIENT OF VARIATION 18.6 (11.5-15.0); RED BLOOD CELL COUNT(AUTO) 2.69 MIL/uL (4.5-6.0); WHITE BLOOD COUNT (AUTO) 5.8 K/uL (4.3-11.0)
[2016-11-04 05:25] LABS: CALCIUM, SERUM 7.4 mg/dL (8.5-10.1); CARBON DIOXIDE 30 mmol/L (21-32); CHLORIDE 103 mmol/L (98-107); CREATININE 4.1 mg/dL (0.6-1.3); GLUCOSE 67 mg/dL (74-106); MAGNESIUM 1.8 mg/dL (1.8-2.4); POTASSIUM 4.3 mmol/L (3.5-5.1); SODIUM SERUM 141 mmol/L (136-145)
[2016-11-04 05:26] LABS: UREA NITROGEN, BLOOD 86 mg/dL (7-18)
[2016-11-04] MEDS ORDERED: VANCOMYCIN 1.25 GM in IV D5W 500 ML IV SCH (06:00)
[2016-11-04] MEDS: PANTOPRAZOLE 40 MG TABLET.DR PO SCH (07:30)
[2016-11-04] MEDS: LEVOTHYROXINE SODIUM 100 MCG TABLET PO SCH (07:30)
--- NOTE | 2016-11-04 08:00 | NUR ---
LEVOPHED TITRATED OFF, SBP SUSTAINING ABOVE 90 CONSISTENTLY.
--- NOTE | 2016-11-04 08:00 | NUR ---
DR. CLAIRE ON THE UNIT TO VICTORIANO PT. REPORTED TO HIM BLOOD SUGARS AT 67 IN AM LABS AND ONE TIME ACCUCHECK AT 84, NO TF AT THIS TIME, HE STATES HE WILL TALK WITH HOSPITALIST FOR POSSIBLE TF. ALSO REPORTED TO HIM LOW UOP OF 75CC LAST NIGHT. HE ACKNOWLEDGES AND STATES HE WILL DISCUSS WITH RENAL.
[2016-11-04] MEDS: ASPIRIN 81 MG TAB.CHEW PO SCH (08:33)
[2016-11-04] MEDS: FOLIC ACID 1 MG TABLET PO SCH (08:33)
[2016-11-04] MEDS: MEMANTINE HCL 5 MG TABLET PO SCH (08:34)
[2016-11-04] MEDS: FINASTERIDE (5 MG) 5 MG TABLET PO SCH (08:34)
[2016-11-04] MEDS: HYDROGEL DRESSING 90 GM TUBE TP SCH (08:34)
[2016-11-04] MEDS: ASCORBIC ACID 500 MG TABLET PO SCH (08:34)
--- NOTE | 2016-11-04 08:47 | NUR ---
PT CORE TEMP ALREADY 98.9, REMOVED JEFF HUGGER HEATING BLANKET AND REPLACED WITH A SHEET. WILL CONTINUE TO MONITOR FOR LOW TEMP.
--- NOTE | 2016-11-04 09:44 | NUR ---
NEGRETTE IN AND ORDERS FOR CT ABDOMEN, AND VQ SCAN. PT INTUBATED, I CALLED АЛЕКСАНДР IN [place] AND HE STATES HE IS UNABLE TO DO THE VQ SCAN BECAUSE HE NEEDS TO PUT ON A MASK ON THE PT FOR THE VENTILATION PORTION OF THE SCAN. HE HAS NOT BEEN ABLE TO DO VQ ON INTUBATED PT BEFORE BECAUSE HE HAS NO WAY OF CONNECTING HIS MACHINE TO THE ETT. REPORTED THIS TO IRASEMA WHO IS ON THE UNIT AND HE ACKNOWLEDGES, CANCELS VQ SCAN. I WILL TAKE PT DOWN FOR CT ABDOMEN, R/O OBSTRUCTION OR ASCITES, HIS ABDOMEN IS FIRM MOSTLY LATERALLY.
[2016-11-04 10:40] LABS: BAND % (MANUAL) 3 % (0.0-5.0); LYMPHOCYTES % (MANUAL) 15 % (16-48); MONOCYTES % (MANUAL) 4 % (0-11.0); NEUTROPHILS % (MANUAL) 78 (42-76)
--- NOTE | 2016-11-04 13:22 | NUR ---
NOTIFIED IRASEMA TRINIDAD ABOUT THE CT RESULTS STATING TO REPOSITION THE LINN CATHETER WHICH IS IN THE PROSTATE. RECVD ORDERS TO REPOSITION. DEFLATED BALLOON REPOSITIONED THE LINN AND IMMEDIATELY 350ML OF DARK SPARKLE/LIGHT PINK FLUIDS DRAINED. INFLATED BALOON WITH NO RESISTANCE DURING INFLATION, I HAD THE CHARGE NURSE INFLATE THE BALLOON WELL TO CONFIRM NO RESISTANCE ON INFLATION. WILL CONTINUE TO MONITOR OUTPUT.
--- NOTE | 2016-11-04 19:19 | NUR ---
RT RECEIVED PT ORALLY INTUBATED WITH A 8.0 ETT SECURED AT 23CM AT THE LIP WITH NOTED VENT SETTINGS. VENT ALARMS CHECKED AND AUDIBLE WITH BVM BY BEDSIDE. STITCHDOWNS TOE FORMER CUFF PRESSURE DONE. VENT IS PLUGGED INTO RED OUTLET. B/S BIALTERAL AND SX WITH MOD THK WHITE/YELLOW SECRETIONS. NO RESPIRATORY DISTRESS NOTED AT THIS TIME, WILL CONTINUE TO MONITOR T/O SHIFT. Addendum: 11/04/16 at 1959 by SASHA MAYORGA RT Amended: Links added.
--- NOTE | 2016-11-04 19:30 | NUR ---
SENIOR MOBILE APPLICATION DEVELOPER: RECEIVED ORALLY INTUBATED PT AND TOLERATING VENT SETTINGS ORDERED. SEDATED ON DIPRIVAN AT 30MCG/KG/MIN. BILAT. NO ACUTE DISTRESS, NO EVIDENCE OF DISCOMFORT. SOFT WRIST RESTRAINTS IN PLACE OF EPISODES OF TRYING TO REACH FOR TUBINGS. NOTED WT GOOD CIRCULATION WHEN RESTRAINTS WERE RELEASED AND CHECKED. SR/SB ON ROLLER PRINTING SUPERVISOR. CORE TEMP AT 96.9, WILL PROVIDE WARM BLANKET. NS AT 50ML/HR INFUSING ON FROY PICC LINE. F/C PATENT AND INTACT DRAINING SMALL AMT. OF TEA COLORED URINE. SAFETY PRECAUTION NOTED. WILL CONTINUE TO MONITOR.
[2016-11-04] MEDS: IV NS 0.9% 1,000 ML IV PRN (20:11)
[2016-11-04] MEDS: INSULIN DETEMIR 100 UNIT/ML CARTRIDGE SQ SCH (22:00)
[2016-11-04] MEDS: ATORVASTATIN 10 MG TABLET PO SCH (22:00)
[2016-11-05] VITALS (46 sets, daily range): BP systolic 99–139; BP diastolic 42–96
[2016-11-05] MEDS ORDERED: MORPHINE SULFATE INJ 4 MG/ML DISP.SYRIN ONE (00:13)
[2016-11-05] MEDS ORDERED: ONDANSETRON HCL/PF 4 MG/2 ML VIAL ONE (00:13)
[2016-11-05] MEDS: PROPOFOL 100 ML IV PRN ×6 (02:26→21:06)
[2016-11-05 04:46] LABS: BILIRUBIN,URINE NEGATIVE (NEGATIVE); BLOOD, URINE 3+ Ery/uL (NEGATIVE); COLOR,URINE YELLOW (YELLOW); KETONES,URINE NEGATIVE (NEGATIVE); LEUKOCYTE ESTERASE ,URINE 1+ (NEGATIVE); NITRITE, URINE NEGATIVE (NEGATIVE); PH,URINE 5.5 (5.0-8.0); PROTEIN,URINE 1+ mg/dl (NEGATIVE); UGLUCOSE NEGATIVE (NEGATIVE); UROBILINOGEN,URINE 0.2 EU/dL (0.2)
[2016-11-05 04:49] LABS: APPEARANCE,URINE HAZY (CLEAR); CREATININE, URINE 72.4 MG/DL (30.0-125.0); URINE TOTAL PROTEIN 93.9 mg/dL (0-11.9)
[2016-11-05 04:55] LABS: BACTERIA,URINE 1+ /HPF (None Seen); SQUAMOUS EPITHELIAL CELL,UR Few /HPF (None Seen); URINE AMORPHOUS URATE Few /HPF (None Seen)
[2016-11-05 05:05] LABS: CALCIUM, SERUM 7.1 mg/dL (8.5-10.1); CARBON DIOXIDE 28 mmol/L (21-32); CHLORIDE 104 mmol/L (98-107); GLUCOSE 58 mg/dL (74-106); POTASSIUM 4.2 mmol/L (3.5-5.1); SODIUM SERUM 141 mmol/L (136-145)
[2016-11-05 05:06] LABS: UREA NITROGEN, BLOOD 87 mg/dL (7-18)
[2016-11-05] MEDS: CEFEPIME 1 GM in IV D5W 100 ML IV SCH (05:18)
--- NOTE | 2016-11-05 05:30 | NUR ---
METAPHYSICIST: STILL OFF LEVOPHED. CONTINUE ON DIPRIVAN DRIP AT 30MCG/KG/MIN. VS WITHIN HIS BASELINE. NO ACUTE DISTRESS, NO EVIDENCE OF DISCOMFORT.
[2016-11-05] MEDS: IV NS 0.9% 1,000 ML IV PRN (07:12)
--- NOTE | 2016-11-05 07:32 | NUR ---
INITIAL FIRE PATROL NOTE RCVD PT INTUBATED, SEDATED, ETT 8.0 23 AT LIP, TOLERATING ORDERED VENT SETTINGS, PT ABLE TO OPEN EYES TO TOUCH. SR/ST ON TELE. LINN DRAINING, YELLOW URINE. IV SITES C/D/I/PATENT. NO S/O INFILTRATION/PHLEBITIS OBSERVED. IVF INFUSING. BILATERAL WRISTS RESTRAINTS IN PLACE. CIRCULATION CHECKS DONE. WILL CONTINUE TO MONITOR PT FOR SAFETY AND COMFORT. CALL LIGHT WITHIN REACH. BED IN LOW AND LOCKED POSITION.
[2016-11-05 08:33] LABS: BASOPHILS % (AUTO) 0.2 % (0.0-2.0); EOSINOPHILS # (AUTO) 0.1 /CMM (0.0-0.7); EOSINOPHILS % (AUTO) 2.1 % (0.0-6.0); HEMATOCRIT 24 % (39-51); HEMOGLOBIN 7.9 g/dL (13.5-17.5); LYMPHOCYTES # (AUTO) 1.3 /CMM (0.8-4.8); LYMPHOCYTES % (AUTO) 18.4 % (20.0-44.0); MEAN CORPUSCULAR HEMOGLOBIN 30 PG (26.0-33.0); MEAN CORPUSCULAR HGB CONC 32 g/dl (31.0-36.0); MEAN CORPUSCULAR VOLUME 92 fL (80-96); MONOCYTES # (AUTO) 0.2 /CMM (0.1-1.30); MONOCYTES % (AUTO) 2.8 % (2.0-12.0); NEUTROPHILS # (AUTO) 5.2 /CMM (1.8-8.9); NEUTROPHILS % (AUTO) 76.5 % (43.0-81.0); PLATELET COUNT (AUTO) 119 /CMM (150-450); RDW COEFFICIENT OF VARIATION 19.3 (11.5-15.0); RED BLOOD CELL COUNT(AUTO) 2.67 MIL/uL (4.5-6.0); WHITE BLOOD COUNT (AUTO) 6.9 K/uL (4.3-11.0)
[2016-11-05] MEDS: FOLIC ACID 1 MG TABLET PO SCH (09:23)
[2016-11-05] MEDS: ASPIRIN 81 MG TAB.CHEW PO SCH (09:23)
[2016-11-05] MEDS: ASCORBIC ACID 500 MG TABLET PO SCH (09:23)
[2016-11-05] MEDS: MEMANTINE HCL 5 MG TABLET PO SCH (09:24)
[2016-11-05] MEDS: HEPARIN SODIUM, PORCINE 5000 UNITS/1 ML VIAL SQ SCH ×2 (09:24→21:07)
[2016-11-05] MEDS: LEVOTHYROXINE SODIUM 100 MCG TABLET PO SCH (09:24)
[2016-11-05] MEDS: FINASTERIDE (5 MG) 5 MG TABLET PO SCH (09:25)
[2016-11-05] MEDS: HYDROGEL DRESSING 90 GM TUBE TP SCH (09:26)
[2016-11-05] MEDS ORDERED: RENAL NOVASOURCE 1,000 ML BOTTLE GT PRN (09:30)
[2016-11-05] MEDS: PANTOPRAZOLE 40 MG/PACK PACK GT SCH (09:44)
--- NOTE | 2016-11-05 10:05 | NUR ---
CALL BOX WIRER NOTE NG TUBE PLACED, PLACEMENT VERIFIED BY 2 RN'S VIA AUSCULTATION/ASPIRATION.
--- NOTE | 2016-11-05 10:30 | NUR ---
SUBWAY GUARD NOTE SEDATION VACATION IMPLEMENTED PT OPENS EYES, UNABLE TO FOLLOW COMMANDS, BITES TUBE, DOES NOT APPEAR COMFORTABLE. SEDATION RESUMED.
--- NOTE | 2016-11-05 12:05 | NUR ---
OCEANOGRAPHER PHYSICAL NOTE PT'S SON AIDEN, UPDATED OVER THE PHONE REGARDING PT'S CONDITION.
--- NOTE | 2016-11-05 18:43 | NUR ---
ENDING CANNERY TENDER ENGINEER NOTE PT REMAINS INTUBATED, SEDATED, VITAL SIGNS STABLE. SHOWING NO S/O DISTRESS AT THIS TIME. IVF INFUSING. IV SITES C/D/I/PATENT. PT'S CARE WILL BE ENDORSED TO OPERATOR AUTOMATED PROCESS RN FOR CONTINUITY OF CARE.
[2016-11-05] MEDS: ATORVASTATIN 10 MG TABLET PO SCH (21:11)
[2016-11-05] MEDS: INSULIN DETEMIR 100 UNIT/ML CARTRIDGE SQ SCH (21:13)
--- NOTE | 2016-11-05 22:46 | NUR ---
rn:icu: pt received in bed sedated on diprivan at 30 mcg/kg/min, pt tachycardic and overbreathing the vent. diprivan increased per protocol by 10mcg/kg/min over 2 hour to a max of 50mcg/kg/min. pt requires bilateral soft wrist restraints in order to maintain patient safety. at times patient becomes restless and is at risk for removing essential lines. per dayshift pt hr fluctuates between st and sr, and the md is aware. no plans for weaning at this time. bs checked prior to long acting insulin admin, lantus held as bs only 66. pt tf rate increased to 30ml/hr per dietary recommendation and pt crushed lipitor was administered via ngt with orange juice to improve glucose level. will reassess glucose shortly. will continue to monitor closely.
[2016-11-06] VITALS (37 sets, daily range): BP systolic 95–144; BP diastolic 45–82
[2016-11-06] MEDS: PROPOFOL 100 ML IV PRN ×6 (00:54→21:08)
[2016-11-06] MEDS: IV NS 0.9% 1,000 ML IV PRN (00:54)
[2016-11-06] MEDS: CEFEPIME 1 GM in IV D5W 100 ML IV SCH (04:02)
[2016-11-06 04:40] LABS: BASOPHILS % (AUTO) 0.2 % (0.0-2.0); EOSINOPHILS # (AUTO) 0.3 /CMM (0.0-0.7); EOSINOPHILS % (AUTO) 5.3 % (0.0-6.0); HEMATOCRIT 24 % (39-51); LYMPHOCYTES % (AUTO) 18.4 % (20.0-44.0); MEAN CORPUSCULAR HEMOGLOBIN 30 PG (26.0-33.0); MEAN CORPUSCULAR HGB CONC 33 g/dl (31.0-36.0); MEAN CORPUSCULAR VOLUME 91 fL (80-96); MONOCYTES # (AUTO) 0.2 /CMM (0.1-1.30); MONOCYTES % (AUTO) 4.3 % (2.0-12.0); NEUTROPHILS # (AUTO) 3.8 /CMM (1.8-8.9); NEUTROPHILS % (AUTO) 71.8 % (43.0-81.0); PLATELET COUNT (AUTO) 117 /CMM (150-450); RDW COEFFICIENT OF VARIATION 19.1 (11.5-15.0); RED BLOOD CELL COUNT(AUTO) 2.68 MIL/uL (4.5-6.0); WHITE BLOOD COUNT (AUTO) 5.3 K/uL (4.3-11.0)
[2016-11-06 05:26] LABS: CALCIUM, SERUM 6.9 mg/dL (8.5-10.1); CARBON DIOXIDE 29 mmol/L (21-32); CHLORIDE 105 mmol/L (98-107); CREATININE 3.5 mg/dL (0.6-1.3); GLUCOSE 93 mg/dL (74-106); MAGNESIUM 1.7 mg/dL (1.8-2.4); POTASSIUM 3.5 mmol/L (3.5-5.1); SODIUM SERUM 142 mmol/L (136-145)
[2016-11-06 05:27] LABS: UREA NITROGEN, BLOOD 84 mg/dL (7-18)
--- NOTE | 2016-11-06 09:00 | NUR ---
Sedation vacation done, off sedation for 30 minutes with son at bedside. Patient opens eyes but unable to follow command. baseline dementia mentioned by son
--- NOTE | 2016-11-06 09:00 | NUR ---
Increase feeding to 35ml/hr as ordered. No residual noted.
[2016-11-06] MEDS: Z GUARD REMEDY 2 OZ OINT TP PRN (09:31)
[2016-11-06] MEDS: FOLIC ACID 1 MG TABLET PO SCH (09:32)
[2016-11-06] MEDS: PANTOPRAZOLE 40 MG/PACK PACK GT SCH (09:32)
[2016-11-06] MEDS: ASCORBIC ACID 500 MG TABLET PO SCH (09:32)
[2016-11-06] MEDS: LEVOTHYROXINE SODIUM 100 MCG TABLET PO SCH (09:32)
[2016-11-06] MEDS: ASPIRIN 81 MG TAB.CHEW PO SCH (09:32)
[2016-11-06] MEDS: MEMANTINE HCL 5 MG TABLET PO SCH (09:33)
[2016-11-06] MEDS: HEPARIN SODIUM, PORCINE 5000 UNITS/1 ML VIAL SQ SCH ×2 (09:34→21:18)
[2016-11-06] MEDS: FINASTERIDE (5 MG) 5 MG TABLET PO SCH (09:35)
[2016-11-06] MEDS: HYDROGEL DRESSING 90 GM TUBE TP SCH (10:35)
[2016-11-06] MEDS ORDERED: FUROSEMIDE 40 MG/4 ML VIAL IV SCH (11:00)
[2016-11-06] MEDS ORDERED: ALBUMIN 25% 12.5 GM/50 ML BOTTLE IV ONE (11:00)
[2016-11-06] MEDS ORDERED: ALBUMIN 25% 12.5 GM in PREMIX 1 EA IV ONE (11:30)
[2016-11-06] MEDS: FUROSEMIDE 40 MG/4 ML VIAL IV SCH (11:41)
[2016-11-06] MEDS: RENAL NOVASOURCE 1,000 ML BOTTLE GT PRN (14:45)
[2016-11-06] MEDS ORDERED: Magnesium 1GM/D5W 100ML PREMIX 100 ML IV SCH (17:30)
--- NOTE | 2016-11-06 19:45 | NUR ---
ICU/PHOTOTYPESETTING EQUIPMENT MONITOR RECEIVED REPORT FROM DAY NURSE.PT SEDATED ON DIPRIVAN AT 40MCG. PT IS ORALLY INTUBATED WITH ETT 8.0 23 AT LIP, TOLERATING CURRENT VENT SETTINGS, SATURATION AT 100%. PT IS SR . F/C DRAINING YELLOW URINE. PICC LINE TO RIGHT UPPER LINE. PT HAS L/ NARE N/G TUBE FEEDING AT 35ML. PT WAS TURNED AND REPOSITIONED FOR COMFORT AND CARE.
[2016-11-06] MEDS: ATORVASTATIN 10 MG TABLET PO SCH (21:29)
[2016-11-06] MEDS: INSULIN DETEMIR 100 UNIT/ML CARTRIDGE SQ SCH (21:49)
--- NOTE | 2016-11-06 21:59 | NUR ---
ICU/BENDER HAND BLOOD SUGAR IS 86, HELD THE LEVEMIR SQ. ALSO NOTICED THE MORNING TREND HAS BEEN LOW IN THE 60'S AND 50'S. ALSO THERE IS NO ACCU CHECK TO MONITOR THE BLOOD SUGAR. WILL VERIFY THE ORDER WITH MD. PT WAS TURNED AND REPOSITIONED FOR COMFORT AND CARE.
[2016-11-07] VITALS (38 sets, daily range): BP systolic 106–147; BP diastolic 44–70
[2016-11-07] MEDS: PROPOFOL 100 ML IV PRN ×7 (00:27→21:37)
[2016-11-07] MEDS: CEFEPIME 1 GM in IV D5W 100 ML IV SCH (04:09)
[2016-11-07] MEDS: IV NS 0.9% 500 ML BAG IV PRN (04:38)
[2016-11-07] MEDS: IV NS 0.9% 250 ML IV PRN (04:39)
[2016-11-07] MEDS: RENAL NOVASOURCE 1,000 ML BOTTLE GT PRN (04:41)
[2016-11-07 05:16] LABS: BASOPHILS % (AUTO) 0.2 % (0.0-2.0); EOSINOPHILS # (AUTO) 0.3 /CMM (0.0-0.7); EOSINOPHILS % (AUTO) 5.7 % (0.0-6.0); HEMATOCRIT 24 % (39-51); HEMOGLOBIN 7.8 g/dL (13.5-17.5); LYMPHOCYTES # (AUTO) 1.1 /CMM (0.8-4.8); LYMPHOCYTES % (AUTO) 20.7 % (20.0-44.0); MEAN CORPUSCULAR HEMOGLOBIN 30 PG (26.0-33.0); MEAN CORPUSCULAR HGB CONC 33 g/dl (31.0-36.0); MEAN CORPUSCULAR VOLUME 91 fL (80-96); MONOCYTES # (AUTO) 0.4 /CMM (0.1-1.30); MONOCYTES % (AUTO) 7.1 % (2.0-12.0); NEUTROPHILS # (AUTO) 3.6 /CMM (1.8-8.9); NEUTROPHILS % (AUTO) 66.3 % (43.0-81.0); PLATELET COUNT (AUTO) 118 /CMM (150-450); RED BLOOD CELL COUNT(AUTO) 2.59 MIL/uL (4.5-6.0); WHITE BLOOD COUNT (AUTO) 5.4 K/uL (4.3-11.0)
[2016-11-07 05:30] LABS: ALANINE AMINOTRANSFERASE 22 U/L (12-78); ALKALINE PHOSPHATASE 84 U/L (46-116); ASPARTATE AMINOTRANSFERASE 27 U/L (15-37); BILIRUBIN,TOTAL 0.4 mg/dL (0.2-1.0); CALCIUM, SERUM 7.6 mg/dL (8.5-10.1); CARBON DIOXIDE 32 mmol/L (21-32); CHLORIDE 106 mmol/L (98-107); CREATININE 3.1 mg/dL (0.6-1.3); GLUCOSE 95 mg/dL (74-106); MAGNESIUM 1.8 mg/dL (1.8-2.4); PHOSPHORUS 4.4 mg/dL (2.5-4.9); POTASSIUM 3.1 mmol/L (3.5-5.1); SODIUM SERUM 142 mmol/L (136-145); TOTAL PROTEIN, SERUM 5.4 g/dL (6.4-8.2)
[2016-11-07 05:42] LABS: UREA NITROGEN, BLOOD 81 mg/dL (7-18)
--- NOTE | 2016-11-07 07:30 | NUR ---
Patient remain intubated on vent (no setting change). vitals stable, reported cardiac pause this AM @ 0650. off pressor. on propofol for sedation. Propofol off this AM for 15 minutes patient unable to follow command, coughing, restless and gagging. Resume sedation. Good urine output 150ml for the last 2 hours.
[2016-11-07] MEDS: FUROSEMIDE 40 MG/4 ML VIAL IV SCH ×2 (08:18→17:30)
[2016-11-07] MEDS: LEVOTHYROXINE SODIUM 100 MCG TABLET PO SCH (08:19)
[2016-11-07] MEDS: ASPIRIN 81 MG TAB.CHEW PO SCH (08:19)
[2016-11-07] MEDS: MEMANTINE HCL 5 MG TABLET PO SCH (08:19)
[2016-11-07] MEDS: FOLIC ACID 1 MG TABLET PO SCH (08:19)
[2016-11-07] MEDS: PANTOPRAZOLE 40 MG/PACK PACK GT SCH (08:19)
[2016-11-07] MEDS: ASCORBIC ACID 500 MG TABLET PO SCH (08:20)
[2016-11-07] MEDS: FINASTERIDE (5 MG) 5 MG TABLET PO SCH (08:20)
[2016-11-07] MEDS: HEPARIN SODIUM, PORCINE 5000 UNITS/1 ML VIAL SQ SCH ×2 (08:24→20:59)
[2016-11-07] MEDS: HYDROGEL DRESSING 90 GM TUBE TP SCH (08:24)
[2016-11-07 09:20] LABS: ABG BASE EXCESS 0.6 mmol/L; ABG OXYGEN SATURATION 94.4 % (92.0-98.5); ABG PCO2 46.5 mmHg (35.0-45.0); ABG PH 7.367 (7.350-7.450); ABG PO2 79.4 mmHg (75.0-100.0); AaDO2 152.3 mmHg; COHb 0.7 % (0.5-1.5); O2Hb 92.8 % (94.0-97.0); PEEP,BG 5 cm H2O; SITE, ABG Right Radial; VT, ABG 450 mL
[2016-11-07] MEDS ORDERED: DEXTROSE 50%-WATER 50 ML DISP.SYRIN IV PRN (09:30)
[2016-11-07] MEDS ORDERED: INSULIN REGULAR, HUMAN 100 UNIT/ML 3 ML VIAL SQ PRN (09:30)
[2016-11-07 09:39] LABS: LYMPHOCYTES % (MANUAL) 8 % (16-48); MONOCYTES % (MANUAL) 4 % (0-11.0); NEUTROPHILS % (MANUAL) 88 (42-76)
[2016-11-07] MEDS: POTASSIUM CL. PREMIX PERIPHER. 50 ML IV SCH ×4 (09:41→18:45)
--- NOTE | 2016-11-07 11:09 | NUR ---
Patient continues to have watery diarrhea, per HOME AID Néstor ok to insert flexiseal if ok with Wound MD. HOME AID Deshawn ok with flexiseal to prevent soiling of stage 2 sacral wound with watery stool
[2016-11-07] MEDS: BLOOD SUGAR DIAGNOSTIC 1 EACH STRIP IN SCH ×3 (11:30→22:37)
--- NOTE | 2016-11-07 17:07 | NUR ---
Repeat K 3.1. informed Ann PERSONAL LINES INSURANCE AGENT. replacement ordered.
--- NOTE | 2016-11-07 19:45 | NUR ---
ICU/QUALITY ENGINEER RECEIVED REPORT FROM DAY NURSE.PT SEDATED ON DIPRIVAN AT 40MCG. PT IS ORALLY INTUBATED WITH ETT 8.0 23 AT LIP, TOLERATING CURRENT VENT SETTINGS, SATURATION AT 100%. PT IS SR ON THE MONITOR . F/C DRAINING YELLOW URINE. PT HAS FLEXISEAL DRAINING LIQUID STOOL. PT HAS RIGHT UPPER ARM PICC LINE,NO REDNESS OR SWELLING SEEN AT THIS TIME TO THE SIGHT. PT HAS L/ NARE N/G TUBE FEEDING, TOLERATING CURRENT RATE OF 35ML/HR WITH NO RESIDUALS AT THIS TIME. PT WAS TURNED AND REPOSITIONED FOR COMFORT AND CARE. WILL CONTINUE TO MONITOR THIS PT.
[2016-11-07] MEDS: METRONIDAZOLE 500 MG TABLET PO SCH (20:57)
[2016-11-07] MEDS: ATORVASTATIN 10 MG TABLET PO SCH (20:57)
[2016-11-07] MEDS: HYDROCODONE/APAP 5/325MG 1 EACH TABLET PO PRN (20:58)
--- NOTE | 2016-11-07 21:40 | NUR ---
ICU/GENETIC COUNSELLOR PT WAS GIVEN NORCO PO FOR FLACC SCALE OF 7-8/10. PT APPEARED TO BE SOMEWHAT RESTLESS. PT'S HEART RATE INCREASED TO 100'S PT APPEARED TO BE DIAPHORETIC. PT WAS TURNED AND REPOSITIONED FOR COMFORT AND CARE. WILL CONTINUE TO MONITOR THE PAIN.
[2016-11-07] MEDS: INSULIN DETEMIR 100 UNIT/ML CARTRIDGE SQ SCH (22:00)
--- NOTE | 2016-11-07 23:10 | NUR ---
ICU/UNIVERSAL GRINDER OPERATOR PT'S BLOOD SUGAR IS 100, NO LEVEMIR SQ WAS GIVEN. WILL CONTINUE TO MONITOR THE BLOOD SUGAR.
[2016-11-08] VITALS (50 sets, daily range): BP systolic 112–159; BP diastolic 49–84
[2016-11-08] MEDS: PROPOFOL 100 ML IV PRN ×5 (00:52→23:31)
[2016-11-08] MEDS: HYDROCODONE/APAP 5/325MG 1 EACH TABLET PO PRN (03:05)
--- NOTE | 2016-11-08 03:19 | NUR ---
ICU/TREE SURGEON HELPER PT WAS GIVEN NORCO PO FOR FLACC SCALE OF 7-8/10. PT APPEARED TO BE SOMEWHAT RESTLESS. PT'S HEART RATE INCREASED TO 120'S. PT WAS TURNED AND REPOSITIONED FOR COMFORT AND CARE. WILL CONTINUE TO MONITOR THE PAIN.
[2016-11-08] MEDS: METRONIDAZOLE 500 MG TABLET PO SCH ×3 (04:40→21:58)
[2016-11-08] MEDS: CEFEPIME 1 GM in IV D5W 100 ML IV SCH (04:40)
[2016-11-08] MEDS: IV NS 0.9% 250 ML IV PRN (04:41)
[2016-11-08] MEDS: RENAL NOVASOURCE 1,000 ML BOTTLE GT PRN (04:41)
[2016-11-08] MEDS: IV NS 0.9% 500 ML BAG IV PRN (04:41)
[2016-11-08 04:50] LABS: BASOPHILS % (AUTO) 0.4 % (0.0-2.0); EOSINOPHILS # (AUTO) 0.4 /CMM (0.0-0.7); EOSINOPHILS % (AUTO) 7.6 % (0.0-6.0); HEMATOCRIT 24 % (39-51); HEMOGLOBIN 7.4 g/dL (13.5-17.5); LYMPHOCYTES # (AUTO) 1.1 /CMM (0.8-4.8); MEAN CORPUSCULAR HEMOGLOBIN 28 PG (26.0-33.0); MEAN CORPUSCULAR HGB CONC 31 g/dl (31.0-36.0); MEAN CORPUSCULAR VOLUME 91 fL (80-96); MONOCYTES # (AUTO) 0.4 /CMM (0.1-1.30); MONOCYTES % (AUTO) 7.2 % (2.0-12.0); NEUTROPHILS # (AUTO) 3.3 /CMM (1.8-8.9); NEUTROPHILS % (AUTO) 63.8 % (43.0-81.0); PLATELET COUNT (AUTO) 114 /CMM (150-450); RDW COEFFICIENT OF VARIATION 19.7 (11.5-15.0); RED BLOOD CELL COUNT(AUTO) 2.63 MIL/uL (4.5-6.0); WHITE BLOOD COUNT (AUTO) 5.1 K/uL (4.3-11.0)
[2016-11-08 04:56] LABS: CALCIUM, SERUM 7.5 mg/dL (8.5-10.1); CARBON DIOXIDE 31 mmol/L (21-32); CHLORIDE 109 mmol/L (98-107); CREATININE 2.8 mg/dL (0.6-1.3); GLUCOSE 88 mg/dL (74-106); POTASSIUM 3.2 mmol/L (3.5-5.1); SODIUM SERUM 146 mmol/L (136-145)
[2016-11-08 04:59] LABS: UREA NITROGEN, BLOOD 81 mg/dL (7-18)
[2016-11-08 05:26] LABS: BAND % (MANUAL) 2 % (0.0-5.0); EOSINOPHILS % (MANUAL) 5 % (0-4); LYMPHOCYTES % (MANUAL) 15 % (16-48); MONOCYTES % (MANUAL) 8 % (0-11.0); NEUTROPHILS % (MANUAL) 70 (42-76)
[2016-11-08] MEDS: BLOOD SUGAR DIAGNOSTIC 1 EACH STRIP IN SCH ×4 (06:03→23:12)
--- NOTE | 2016-11-08 07:35 | NUR ---
FILAMENT TESTER RECEIVED PATIENT FROM THE PREVIOUS SHIFT. PATIENT IS IN BED. RESTING COMFORTABLY. NO ACUTE DISTRESS NOTED. AFEBRILE. SINUS RHYTHM ON MONITOR. LINN DRAINING URINE TO GRAVITY. TURNED AND REPOSITIONED FOR COMFORT WOUND PREVENTION.
[2016-11-08] MEDS: HYDROGEL DRESSING 90 GM TUBE TP SCH (08:14)
[2016-11-08] MEDS: PANTOPRAZOLE 40 MG/PACK PACK GT SCH (08:20)
[2016-11-08] MEDS: HEPARIN SODIUM, PORCINE 5000 UNITS/1 ML VIAL SQ SCH (08:20)
[2016-11-08] MEDS: ASPIRIN 81 MG TAB.CHEW PO SCH (08:20)
[2016-11-08] MEDS: ASCORBIC ACID 500 MG TABLET PO SCH (08:20)
[2016-11-08] MEDS: FINASTERIDE (5 MG) 5 MG TABLET PO SCH (08:20)
[2016-11-08] MEDS: FUROSEMIDE 40 MG/4 ML VIAL IV SCH (08:21)
[2016-11-08] MEDS: MEMANTINE HCL 5 MG TABLET PO SCH (08:21)
[2016-11-08] MEDS: FOLIC ACID 1 MG TABLET PO SCH (08:21)
[2016-11-08] MEDS: LEVOTHYROXINE SODIUM 100 MCG TABLET PO SCH (08:21)
[2016-11-08 08:42] LABS: ABG BASE EXCESS 3.5 mmol/L; ABG OXYGEN SATURATION 93.8 % (92.0-98.5); ABG PCO2 52.3 mmHg (35.0-45.0); ABG PH 7.367 (7.350-7.450); ABG PO2 77.2 mmHg (75.0-100.0); AaDO2 147.9 mmHg; COHb 0.8 % (0.5-1.5); MetHb 0.7 % (0.0-1.5); O2Hb 92.4 % (94.0-97.0); SITE, ABG Right Radial; VENT MODE, BG ac 14 450 40%+5
[2016-11-08] MEDS ORDERED: ALBUMIN 25% 12.5 GM/50 ML BOTTLE IV ONE (09:30)
--- NOTE | 2016-11-08 09:30 | NUR ---
TEACHERS ASSISTANT DURING SEDATION VACATION RN HELD THE DIPRIVAN GTT FOR 20 MIN. PATIENT NOTED TO BE RESTLESS, AGITATED, TACHYCARDIC. NO PURPOSEFUL MOVEMENT. COPIOUS AMOUNTS OF ORAL SECRETIONS. SEDATION REINITIATED FOR COMFORT.
[2016-11-08] MEDS ORDERED: ALBUMIN 25% 12.5 GM in PREMIX 1 EA IV ONE (10:00)
[2016-11-08] MEDS ORDERED: BUMETANIDE INJ 4 MG in IV D5W 24 ML IV ONE (10:00)
[2016-11-08] MEDS: POTASSIUM CL. PREMIX PERIPHER. 50 ML IV SCH ×4 (10:01→16:13)
[2016-11-08] MEDS ORDERED: FUROSEMIDE IV ONE ×4 (12:00)
[2016-11-08] MEDS ORDERED: NS 0.9% IV ONE ×4 (12:00)
[2016-11-08 16:24] LABS: HEMOGLOBIN 7.7 g/dL (13.5-17.5)
[2016-11-08] MEDS ORDERED: POTASSIUM CHLORIDE 20 MEQ POWDER PACKET GT ONE (18:00)
--- NOTE | 2016-11-08 20:00 | NUR ---
received pt from day shift, sedated on Diprivan at 50mcg, SR, CVP monitoring, on the vent, lungs congested, pitting edema throughout, NG to feeding, tolerates well, f/c good output, rectal tube intact, v/s stable, no pain, pt turned and repositioned.
[2016-11-08] MEDS: ATORVASTATIN 10 MG TABLET PO SCH (21:58)
[2016-11-08] MEDS: INSULIN DETEMIR 100 UNIT/ML CARTRIDGE SQ SCH (22:00)
[2016-11-09] VITALS (55 sets, daily range): BP systolic 109–158; BP diastolic 39–106
--- NOTE | 2016-11-09 00:22 | NUR ---
pt is resting in the bed, confused, v/s stable, no pain, tolerates feeding, pt turned and repositioned q2hrs.
[2016-11-09] MEDS: PROPOFOL 100 ML IV PRN ×5 (03:49→21:28)
[2016-11-09] MEDS: CEFEPIME 1 GM in IV D5W 100 ML IV SCH (04:20)
[2016-11-09] MEDS: METRONIDAZOLE 500 MG TABLET PO SCH ×3 (04:28→20:54)
--- NOTE | 2016-11-09 04:53 | NUR ---
pt is resting in the bed, no acute distress overnight, SR, tolerates feeding, v/s stable, no pain, pt cleaned, changed and repositioned q2hrs.
[2016-11-09 05:12] LABS: BASOPHILS % (AUTO) 0.2 % (0.0-2.0); EOSINOPHILS # (AUTO) 0.4 /CMM (0.0-0.7); EOSINOPHILS % (AUTO) 5.1 % (0.0-6.0); HEMATOCRIT 24 % (39-51); LYMPHOCYTES # (AUTO) 1.2 /CMM (0.8-4.8); LYMPHOCYTES % (AUTO) 16.3 % (20.0-44.0); MEAN CORPUSCULAR HEMOGLOBIN 30 PG (26.0-33.0); MEAN CORPUSCULAR HGB CONC 33 g/dl (31.0-36.0); MEAN CORPUSCULAR VOLUME 91 fL (80-96); MONOCYTES # (AUTO) 0.3 /CMM (0.1-1.30); MONOCYTES % (AUTO) 4.2 % (2.0-12.0); NEUTROPHILS # (AUTO) 5.5 /CMM (1.8-8.9); NEUTROPHILS % (AUTO) 74.2 % (43.0-81.0); PLATELET COUNT (AUTO) 117 /CMM (150-450); RDW COEFFICIENT OF VARIATION 19.4 (11.5-15.0); RED BLOOD CELL COUNT(AUTO) 2.67 MIL/uL (4.5-6.0); WHITE BLOOD COUNT (AUTO) 7.4 K/uL (4.3-11.0)
[2016-11-09 05:26] LABS: CALCIUM, SERUM 7.6 mg/dL (8.5-10.1); CARBON DIOXIDE 32 mmol/L (21-32); CHLORIDE 110 mmol/L (98-107); CREATININE 2.5 mg/dL (0.6-1.3); GLUCOSE 98 mg/dL (74-106); POTASSIUM 3.5 mmol/L (3.5-5.1); SODIUM SERUM 148 mmol/L (136-145); UREA NITROGEN, BLOOD 78 mg/dL (7-18)
[2016-11-09] MEDS: BLOOD SUGAR DIAGNOSTIC 1 EACH STRIP IN SCH (06:14)
--- NOTE | 2016-11-09 07:35 | NUR ---
CULINARY MANAGER RECEIVED PATIENT FROM THE PREVIOUS SHIFT. PATIENT IS IN BED. RESTING COMFORTABLY. VENT SETTINGS REVIEWED AND VERIFIED. AFEBRILE. SINUS RHYTHM ON MONITOR. STABLE BP. OFF PRESSORS. WILL CONTINUE TO MONITOR AND PROVIDE CARE.
[2016-11-09] MEDS: PANTOPRAZOLE 40 MG/PACK PACK GT SCH (09:02)
[2016-11-09] MEDS: FOLIC ACID 1 MG TABLET PO SCH (09:02)
[2016-11-09] MEDS: FINASTERIDE (5 MG) 5 MG TABLET PO SCH (09:02)
[2016-11-09] MEDS: ASCORBIC ACID 500 MG TABLET PO SCH (09:02)
[2016-11-09] MEDS: ASPIRIN 81 MG TAB.CHEW PO SCH (09:02)
[2016-11-09] MEDS: HYDROGEL DRESSING 90 GM TUBE TP SCH (09:03)
[2016-11-09] MEDS: MEMANTINE HCL 5 MG TABLET PO SCH (09:03)
[2016-11-09] MEDS: LEVOTHYROXINE SODIUM 100 MCG TABLET PO SCH (09:05)
--- NOTE | 2016-11-09 09:45 | NUR ---
MILK HAULER DURING SEDATION VACATION RN HELD THE DIPRIVAN GTT FOR 20 MIN. PATIENT NOTED TO BE RESTLESS, AGITATED, TACHYCARDIC. NO PURPOSEFUL MOVEMENT. COPIOUS AMOUNTS OF ORAL SECRETIONS. SEDATION REINITIATED FOR COMFORT.
[2016-11-09] MEDS: BUMETANIDE INJ 0.25 MG/ML VIAL IV SCH (17:20)
[2016-11-09] MEDS: HEPARIN SODIUM, PORCINE 5000 UNITS/1 ML VIAL SQ SCH (20:55)
--- NOTE | 2016-11-09 21:00 | NUR ---
Received report from day shift.Patient sedated on Diprivan drip @ 50 mcg/kg/min.Intubated /vented on AC mode.Settings well tolerated.Moderate secretions both orally and via ETT.Suctioned secretions prn.Oral care done.SR 70's-80's.CVP monitoring.NGT feeding well tolerated.Rectal tube with small watery stool.FC to gravity moderate clear yellow urine with some sediments.No signs of pain .Turned and reposition. Continue monitoring.
[2016-11-09] MEDS: ATORVASTATIN 10 MG TABLET PO SCH (21:35)
[2016-11-09] MEDS: INSULIN DETEMIR 100 UNIT/ML CARTRIDGE SQ SCH (22:00)
--- NOTE | 2016-11-09 22:10 | NUR ---
Levemir not administered.Blood sugar 103.ngt feeding well tolerated.
[2016-11-10] VITALS (40 sets, daily range): BP systolic 106–153; BP diastolic 49–85
[2016-11-10] MEDS: PROPOFOL 100 ML IV PRN ×9 (03:12→22:46)
[2016-11-10] MEDS: CEFEPIME 1 GM in IV D5W 100 ML IV SCH (04:48)
[2016-11-10] MEDS: METRONIDAZOLE 500 MG TABLET PO SCH ×3 (04:48→21:03)
[2016-11-10] MEDS: IV NS 0.9% 500 ML BAG IV PRN (04:49)
[2016-11-10 04:50] LABS: BASOPHILS % (AUTO) 0.2 % (0.0-2.0); EOSINOPHILS # (AUTO) 0.4 /CMM (0.0-0.7); HEMATOCRIT 24 % (39-51); HEMOGLOBIN 7.6 g/dL (13.5-17.5); LYMPHOCYTES # (AUTO) 1.1 /CMM (0.8-4.8); LYMPHOCYTES % (AUTO) 15.1 % (20.0-44.0); MEAN CORPUSCULAR HEMOGLOBIN 29 PG (26.0-33.0); MEAN CORPUSCULAR HGB CONC 32 g/dl (31.0-36.0); MEAN CORPUSCULAR VOLUME 91 fL (80-96); MONOCYTES # (AUTO) 0.2 /CMM (0.1-1.30); MONOCYTES % (AUTO) 3.2 % (2.0-12.0); NEUTROPHILS # (AUTO) 5.6 /CMM (1.8-8.9); NEUTROPHILS % (AUTO) 76.5 % (43.0-81.0); PLATELET COUNT (AUTO) 116 /CMM (150-450); RDW COEFFICIENT OF VARIATION 19.2 (11.5-15.0); RED BLOOD CELL COUNT(AUTO) 2.59 MIL/uL (4.5-6.0); WHITE BLOOD COUNT (AUTO) 7.3 K/uL (4.3-11.0)
[2016-11-10 05:13] LABS: CALCIUM, SERUM 7.7 mg/dL (8.5-10.1); CARBON DIOXIDE 32 mmol/L (21-32); CHLORIDE 110 mmol/L (98-107); CREATININE 2.4 mg/dL (0.6-1.3); GLUCOSE 99 mg/dL (74-106); POTASSIUM 3.2 mmol/L (3.5-5.1); SODIUM SERUM 149 mmol/L (136-145)
[2016-11-10 05:16] LABS: UREA NITROGEN, BLOOD 80 mg/dL (7-18)
[2016-11-10 06:08] LABS: *SPE A/G RATIO 0.9 (0.7-1.7); *SPE ALBUMIN 2.5 g/dL (2.9-4.4); *SPE ALPHA-1-GLOBULIN 0.3 g/dL (0.0-0.4); *SPE ALPHA-2-GLOBULIN 0.6 g/dL (0.4-1.0); *SPE BETA GLOBULIN 0.6 g/dL (0.7-1.3); *SPE GLOBULIN, TOTAL 2.7 g/dL (2.2-3.9); *SPE M-SPIKE 0.2 g/dL (Not Observed); *SPE PROTEIN TOTAL 5.2 g/dL (6.0-8.5); *SPEGAMMA GLOBULIN 1.1 g/dL (0.4-1.8)
--- NOTE | 2016-11-10 06:30 | NUR ---
No significant change noted to patient status.Diprivan drip infusing at 50 mcg well tolerated. All due medication administered.AM care done.Turned and repositioned.
--- NOTE | 2016-11-10 07:13 | NUR ---
AM labs resulted WBC 45.4,PTT 106 ,INR 4.34 called to notified.No new orders received. Addendum: 11/10/16 at 0716 by BARRERA SMITH RN Please disregard above am lab result.Wrong entry.It belongs to another patient.
--- NOTE | 2016-11-10 07:20 | NUR ---
ICU INITIAL NOTE RECEIVED PT IN BED, SEDATION, PT IS ON [facility] VENT ETT 8.0, 23 @ LIPLINE, AC 14 TV 450 FIO2 40% PEEP 5, SATING 99%, NO S/S OF RESP. DISTRESS OR SOB NOTED AT THIS TIME, PT IS ON BEDSIDE MONITOR SHOWING SR 70'S, NO S/S OF CHEST PAIN OR DISCOMFORT AT THIS TIME, LEFT NGT, INTACT/PATENT, RUNNING NOVASOURCE @ 35ML/HR, TOLERATING WELL, NO RESIDUALS NOTED AT THIS TIME, PT HAS FROY TLC PICC, C/D/I/PATENT, FLUSHING WELL, RUNNING DIPRIVAN @50MCG/KG/MIN, TKO @ 5ML/HR, NO S/S OF INFECTION/ INFILTRATION NOTED AT THIS TIME, CVP MONITORING SHOWING 8 AT THIS TIME, PT HAS F/C DRAINING YELLOW URINE TO GRAVITY, FLEXISEAL DRAINING GREEN LOOSE STOOL, PT IS NOTED WITH SKIN ISSUES, ALL TREATMENTS ACK AND COMPLETED, ALL SAFETY MEASURES IN PLACE AT ALL TIMES, CALL LIGHT WITHIN EASY REACH WILL MONITOR PT CLOSELY FOR CHANGES
--- NOTE | 2016-11-10 08:30 | NUR ---
ICU NOTE HEPARIN HELD, H/H 7.624, PLT 116
[2016-11-10] MEDS: BUMETANIDE INJ 0.25 MG/ML VIAL IV SCH (08:37)
[2016-11-10] MEDS: ASCORBIC ACID 500 MG TABLET PO SCH (08:37)
[2016-11-10] MEDS: LEVOTHYROXINE SODIUM 100 MCG TABLET PO SCH (08:37)
[2016-11-10] MEDS: FINASTERIDE (5 MG) 5 MG TABLET PO SCH (08:37)
[2016-11-10] MEDS: MEMANTINE HCL 5 MG TABLET PO SCH (08:37)
[2016-11-10] MEDS: PANTOPRAZOLE 40 MG/PACK PACK GT SCH (08:37)
[2016-11-10] MEDS: ASPIRIN 81 MG TAB.CHEW PO SCH (08:37)
[2016-11-10] MEDS: FOLIC ACID 1 MG TABLET PO SCH (08:37)
[2016-11-10] MEDS: HEPARIN SODIUM, PORCINE 5000 UNITS/1 ML VIAL SQ SCH ×2 (08:38→21:04)
[2016-11-10] MEDS: Z GUARD REMEDY 2 OZ OINT TP PRN (08:38)
[2016-11-10] MEDS: HYDROGEL DRESSING 90 GM TUBE TP SCH (08:38)
[2016-11-10] MEDS: RENAL NOVASOURCE 1,000 ML BOTTLE GT PRN (08:39)
[2016-11-10] MEDS: IV NS 0.9% 250 ML IV PRN (08:39)
--- NOTE | 2016-11-10 09:00 | NUR ---
SEDATION VACATION DIPRIVAN WAS TURNED OFF, PT IS UNABLE TO FOLLOW COMMANDS, ABLE TO MOVE TOES, PT BECAME RESTLESS, HR 121, RESPIRATIONS 21, PT BITING ON ETT, DIPRIVAN RESTARTED @ 30MCG/MIN
[2016-11-10] MEDS ORDERED: POTASSIUM CHLORIDE 10 MEQ TABLET.SA PO ONE (10:30)
[2016-11-10] MEDS: POTASSIUM CL. PREMIX PERIPHER. 50 ML IV SCH ×3 (11:40→13:29)
--- NOTE | 2016-11-10 19:30 | NUR ---
PHARMACY CLERK INITIAL NOTE RECEIVED PT FROM MIRA BUSTAMANTE. PT IS IN BED, SEDATED AND INTUBATED. ON DIPRIVAN AT 50MCG. PT IS SR TO ST. LUNG SOUNDS DIMINISHED. TOLERATING CURRENT VENT SETTINGS. ET 8.0 LIP 23 CM. LEFT NARE NGT WITH NOVASOURCE RUNNING AT 35CC/HR. BOWEL SOUNDS PRESENT WITH A FLEXISEAL IN PLACE. LINN INTACT AND DRAINING URINE. IV RIGHT UPPER ARM PICC WITH NS AT TKO. MULTIPLE SKIN ISSUES. PT BED IN LOW LOCKED POSITION. WILL CONTINUE TO MONITOR.
[2016-11-10] MEDS: ATORVASTATIN 10 MG TABLET PO SCH (21:03)
[2016-11-10] MEDS: INSULIN DETEMIR 100 UNIT/ML CARTRIDGE SQ SCH (21:10)
[2016-11-11] VITALS (49 sets, daily range): BP systolic 118–175; BP diastolic 54–118
[2016-11-11] MEDS: PROPOFOL 100 ML IV PRN ×3 (01:40→07:49)
[2016-11-11] MEDS: IV NS 0.9% 500 ML BAG IV PRN (04:21)
[2016-11-11] MEDS: CEFEPIME 1 GM in IV D5W 100 ML IV SCH (04:38)
[2016-11-11] MEDS: METRONIDAZOLE 500 MG TABLET PO SCH ×3 (04:38→20:24)
[2016-11-11 04:58] LABS: BASOPHILS % (AUTO) 0.2 % (0.0-2.0); EOSINOPHILS # (AUTO) 0.3 /CMM (0.0-0.7); EOSINOPHILS % (AUTO) 4.2 % (0.0-6.0); HEMATOCRIT 23 % (39-51); HEMOGLOBIN 7.4 g/dL (13.5-17.5); LYMPHOCYTES # (AUTO) 1.3 /CMM (0.8-4.8); LYMPHOCYTES % (AUTO) 16.4 % (20.0-44.0); MEAN CORPUSCULAR HEMOGLOBIN 30 PG (26.0-33.0); MEAN CORPUSCULAR HGB CONC 33 g/dl (31.0-36.0); MEAN CORPUSCULAR VOLUME 92 fL (80-96); MONOCYTES # (AUTO) 0.3 /CMM (0.1-1.30); MONOCYTES % (AUTO) 3.8 % (2.0-12.0); NEUTROPHILS # (AUTO) 6.1 /CMM (1.8-8.9); NEUTROPHILS % (AUTO) 75.4 % (43.0-81.0); PLATELET COUNT (AUTO) 110 /CMM (150-450); RDW COEFFICIENT OF VARIATION 19.4 (11.5-15.0); RED BLOOD CELL COUNT(AUTO) 2.48 MIL/uL (4.5-6.0); WHITE BLOOD COUNT (AUTO) 8.1 K/uL (4.3-11.0)
[2016-11-11 05:03] LABS: CALCIUM, SERUM 7.9 mg/dL (8.5-10.1); CARBON DIOXIDE 32 mmol/L (21-32); CHLORIDE 108 mmol/L (98-107); CREATININE 2.4 mg/dL (0.6-1.3); GLUCOSE 81 mg/dL (74-106); MAGNESIUM 1.5 mg/dL (1.8-2.4); PHOSPHORUS 3.7 mg/dL (2.5-4.9); SODIUM SERUM 147 mmol/L (136-145); UREA NITROGEN, BLOOD 78 mg/dL (7-18)
[2016-11-11] MEDS: LEVOTHYROXINE SODIUM 100 MCG TABLET PO SCH (08:02)
[2016-11-11] MEDS: FOLIC ACID 1 MG TABLET PO SCH (08:02)
[2016-11-11] MEDS: PANTOPRAZOLE 40 MG/PACK PACK GT SCH (08:02)
[2016-11-11] MEDS: ASCORBIC ACID 500 MG TABLET PO SCH (08:02)
[2016-11-11] MEDS: MEMANTINE HCL 5 MG TABLET PO SCH (08:02)
[2016-11-11] MEDS: ASPIRIN 81 MG TAB.CHEW PO SCH (08:02)
[2016-11-11] MEDS: FINASTERIDE (5 MG) 5 MG TABLET PO SCH (08:02)
[2016-11-11] MEDS: HEPARIN SODIUM, PORCINE 5000 UNITS/1 ML VIAL SQ SCH ×2 (08:05→20:27)
[2016-11-11] MEDS: HYDROGEL DRESSING 90 GM TUBE TP SCH (08:06)
[2016-11-11] MEDS: BUMETANIDE INJ 0.25 MG/ML VIAL IV SCH (08:56)
[2016-11-11] MEDS ORDERED: POTASSIUM CHLORIDE 20 MEQ POWDER PACKET GT ONE (10:30)
[2016-11-11] MEDS ORDERED: Magnesium 1GM/D5W 100ML PREMIX 100 ML IV SCH (11:18)
--- NOTE | 2016-11-11 11:18 | NUR ---
SEDATION VACATION DR. OSHEA ON THE UNIT DISCUSSES PLAN WITH THE PT'S DAUGHTER IN LAW MAYORGA AT BEDSIDE; RESPIRATORY AND PRIMARY RN AT BEDSIDE. ORDERS ARE TO KEEP THE SEDATION OFF, TO GET A BASELINE STATUS AND POSSIBLE WEANING TRIAL TODAY. I SLOWLY TITRATED THE DIPRIVAN DOWN, RESPIRATORY FTOT RATE ON THE VENT IS 21-30'S, HR HIGH 133 AND SBP 130'S-160'S DR. OSHEA AWARE OF THIS, HE ORDERS TO KEEP THE SEDATION OFF AND HE WILL COME BACK TO ASSESS.
--- NOTE | 2016-11-11 15:08 | NUR ---
DR. OSHEA BACK ON THE UNIT, HE ORDERS TO KEEP THE PT OFF SEDATION OVERNIGHT WILL TRY TO WEAN TOMORROW.
[2016-11-11] MEDS: RENAL NOVASOURCE 1,000 ML BOTTLE GT PRN (18:04)
--- NOTE | 2016-11-11 19:14 | NUR ---
RT PT RECEIVED INTUBATED W/ A 8.0 EET @ 24 CM LIP ON [facility] VENT WITH NOTED SETTINGS. VENT PLUGGED IN TO RED OUTLET. ETT PATENT AND SECURE VIA ANCHOR FAST. OPERATIONS GENERAL AGENT DONE. AMBU BAG AT [facility]. ALARMS SET AND AUDIBLE. DISCONNECT ALARM VERIFIED. WILL CONTINUE TO MONITOR. Addendum: 11/11/16 at 1917 by LATOYA ROLLINS RT Amended: Links added.
--- NOTE | 2016-11-11 19:40 | NUR ---
TOP STEEP TENDER. INITIAL ASSESSMENT. RECEIVED THE PT ORALLY INTUBATED. ETT #8,LIP 23CMS,AC 14,TV 450, FIO2 40%,PEEP 5,SAT 98%. STEEL FABRICATOR SHOWING NSR. IV RT UPPER ARM PICC LINE TKO RUNNING. OGT INTACT. NOVA SOURCE 35ML/H. HOB ELEVATED. GUILLAUME SOFT WRIST RESTRAINT RESTRAINT CHECKED AND RELEASED. NO INJURY OR REDNESS NOTED. FC PATENT. TURN AND REPOSITION Q2H. WILL CONTINUE TO MONITOR VITALS.
[2016-11-11] MEDS: IV NS 0.9% 250 ML IV PRN (20:24)
[2016-11-11] MEDS: INSULIN DETEMIR 100 UNIT/ML CARTRIDGE SQ SCH (22:00)
[2016-11-11] MEDS: ATORVASTATIN 10 MG TABLET PO SCH (22:59)
[2016-11-12] VITALS (44 sets, daily range): BP systolic 135–187; BP diastolic 60–106
--- NOTE | 2016-11-12 03:26 | NUR ---
MATERIALS COORDINATOR. AM CARE, ORAL CARE, BED BATH GIVEN.LINEN CHANGED. REMAINING SAME VENT SETTING TOLERATED WELL. SAT 98%. NO ACUTE DISTRESS NOTED. MOTION PICTURE CAMERA OPERATOR SHOWING NSR. IV RT UPPER ARM PICC LINE TKO RUNNING. FC PATENT. URINE DRAINING. FLEXA SEAL INTACT. OGT FEEDING TOLERATED WELL. HOB ELEVATED. TURN AND REPOSITION Q2H. WILL CONTINUE TO MONITOR VITALS.
[2016-11-12 04:56] LABS: BASOPHILS % (AUTO) 0.2 % (0.0-2.0); EOSINOPHILS # (AUTO) 0.3 /CMM (0.0-0.7); EOSINOPHILS % (AUTO) 2.8 % (0.0-6.0); HEMATOCRIT 23 % (39-51); HEMOGLOBIN 7.3 g/dL (13.5-17.5); LYMPHOCYTES % (AUTO) 18.5 % (20.0-44.0); MEAN CORPUSCULAR HEMOGLOBIN 29 PG (26.0-33.0); MEAN CORPUSCULAR HGB CONC 32 g/dl (31.0-36.0); MEAN CORPUSCULAR VOLUME 91 fL (80-96); MONOCYTES # (AUTO) 0.5 /CMM (0.1-1.30); MONOCYTES % (AUTO) 4.2 % (2.0-12.0); NEUTROPHILS # (AUTO) 8.1 /CMM (1.8-8.9); NEUTROPHILS % (AUTO) 74.3 % (43.0-81.0); PLATELET COUNT (AUTO) 121 /CMM (150-450); RDW COEFFICIENT OF VARIATION 18.9 (11.5-15.0); RED BLOOD CELL COUNT(AUTO) 2.51 MIL/uL (4.5-6.0); WHITE BLOOD COUNT (AUTO) 10.9 K/uL (4.3-11.0)
[2016-11-12] MEDS: CEFEPIME 1 GM in IV D5W 100 ML IV SCH (05:00)
[2016-11-12] MEDS: METRONIDAZOLE 500 MG TABLET PO SCH ×3 (05:00→21:48)
[2016-11-12 05:19] LABS: CALCIUM, SERUM 8.1 mg/dL (8.5-10.1); CARBON DIOXIDE 32 mmol/L (21-32); CHLORIDE 108 mmol/L (98-107); CREATININE 2.8 mg/dL (0.6-1.3); GLUCOSE 67 mg/dL (74-106); MAGNESIUM 1.6 mg/dL (1.8-2.4); POTASSIUM 3.4 mmol/L (3.5-5.1); SODIUM SERUM 148 mmol/L (136-145)
[2016-11-12 05:20] LABS: UREA NITROGEN, BLOOD 80 mg/dL (7-18)
[2016-11-12] MEDS: LEVOTHYROXINE SODIUM 100 MCG TABLET PO SCH (08:22)
[2016-11-12] MEDS: FOLIC ACID 1 MG TABLET PO SCH (08:23)
[2016-11-12] MEDS: PANTOPRAZOLE 40 MG/PACK PACK GT SCH (08:23)
[2016-11-12] MEDS: MEMANTINE HCL 5 MG TABLET PO SCH (08:23)
[2016-11-12] MEDS: ASCORBIC ACID 500 MG TABLET PO SCH (08:23)
[2016-11-12] MEDS: FINASTERIDE (5 MG) 5 MG TABLET PO SCH (08:23)
[2016-11-12] MEDS: BUMETANIDE INJ 0.25 MG/ML VIAL IV SCH (08:23)
[2016-11-12] MEDS: ASPIRIN 81 MG TAB.CHEW PO SCH (08:23)
[2016-11-12] MEDS: HYDROGEL DRESSING 90 GM TUBE TP SCH (08:24)
[2016-11-12] MEDS: HEPARIN SODIUM, PORCINE 5000 UNITS/1 ML VIAL SQ SCH ×2 (08:26→21:49)
[2016-11-12] MEDS ORDERED: POTASSIUM CHLORIDE 20 MEQ POWDER PACKET GT ONE (09:30)
[2016-11-12] MEDS: Magnesium 1GM/D5W 100ML PREMIX 100 ML IV SCH ×2 (09:40→10:42)
--- NOTE | 2016-11-12 09:50 | NUR ---
SAWMILL EQUIPMENT OPERATOR- Dr. Davila at bedside. Md made aware of pt's current neurological status- pt awake, opens eyes but does not follow commands. Family at bedside and updated with plan of care by md. Will continue to monitor.
[2016-11-12] MEDS: RENAL NOVASOURCE 1,000 ML BOTTLE GT PRN (15:50)
--- NOTE | 2016-11-12 18:04 | NUR ---
Patient received orally intubated with 8.0 ETT secured at 24 cm mid lip line on pb 840 vent. ETT moved from left to right throughout shift. Alarms verified and audible. Bilateral B/S noted. Suctioned and lavaged large amount of thick urrutia secretions. Vent plugged into red outlet. Ambu bag at [facility].
[2016-11-12] MEDS: MORPHINE SULFATE INJ 2 MG/ML DISP.SYRIN IV PRN ×2 (18:24→23:46)
[2016-11-12] MEDS: HYDROCODONE/APAP 5/325MG 1 EACH TABLET PO PRN (21:47)
[2016-11-12] MEDS: ATORVASTATIN 10 MG TABLET PO SCH (21:49)
[2016-11-12] MEDS: INSULIN DETEMIR 100 UNIT/ML CARTRIDGE SQ SCH (22:00)
--- NOTE | 2016-11-12 22:00 | NUR ---
BASEBALL UMPIRE FOR LITTLE LEAGUE: PEPPER 10 U UNITS HELD BS=[id number].
[2016-11-12] MEDS: IV NS 0.9% 500 ML BAG IV PRN (23:46)
[2016-11-13] VITALS (34 sets, daily range): BP systolic 88–172; BP diastolic 45–100
--- NOTE | 2016-11-13 00:45 | NUR ---
MANAGER CONTINUOUS IMPROVEMENT: [employer]IV ROUTE DRIVER [employer] WAS NOTIFIED OF PT's OCCASIONAL EPISODE OF RESTLESSNESS M/B ELEVATED HR IN 120s-130s, BP IN THE 160s. PT. IS WIDE AWAKE, TRACKS BUT UNABLE TO FOLLOW COMMANDS. ALSO HAS EPISODES OF BITING ETT. BILAT. SOFT WRIST RESTRAINTS IN PLACE TO PREVENT SELF-EXTUBATION. SKIN AND CIRCULATION WNL. STILL OFF DIPRIVAN. ROUTE DRIVER COIN MACHINES WT ORDER FOR ATIVAN PRN. NOTED AND CARRIED OUT. WILL ADMINISTER MED NEEDED.
[2016-11-13] MEDS ORDERED: LORAZEPAM INJ 2 MG/ML VIAL IV PRN (01:00)
--- NOTE | 2016-11-13 03:15 | NUR ---
RESIDENTIAL INSTRUCTOR: PT GIVEN ATIVAN FOR RESTLESSNESS AND FIGHTING VENT WHILE GIVING BED BATH. WILL CONTINUE TO MONITOR EFFECTIVITY.
[2016-11-13] MEDS ORDERED: LORAZEPAM INJ 2 MG/ML VIAL ONE (03:36)
[2016-11-13] MEDS: MORPHINE SULFATE INJ 2 MG/ML DISP.SYRIN IV PRN ×2 (04:09→13:15)
[2016-11-13] MEDS: METRONIDAZOLE 500 MG TABLET PO SCH (04:09)
[2016-11-13 04:39] LABS: BASOPHILS % (AUTO) 0.1 % (0.0-2.0); EOSINOPHILS # (AUTO) 0.2 /CMM (0.0-0.7); EOSINOPHILS % (AUTO) 1.4 % (0.0-6.0); HEMATOCRIT 24 % (39-51); HEMOGLOBIN 7.8 g/dL (13.5-17.5); LYMPHOCYTES # (AUTO) 2.6 /CMM (0.8-4.8); LYMPHOCYTES % (AUTO) 15.6 % (20.0-44.0); MEAN CORPUSCULAR HEMOGLOBIN 30 PG (26.0-33.0); MEAN CORPUSCULAR HGB CONC 33 g/dl (31.0-36.0); MEAN CORPUSCULAR VOLUME 92 fL (80-96); MONOCYTES # (AUTO) 0.6 /CMM (0.1-1.30); MONOCYTES % (AUTO) 3.9 % (2.0-12.0); PLATELET COUNT (AUTO) 153 /CMM (150-450); RDW COEFFICIENT OF VARIATION 19.7 (11.5-15.0); WHITE BLOOD COUNT (AUTO) 16.5 K/uL (4.3-11.0)
[2016-11-13 04:57] LABS: CALCIUM, SERUM 8.2 mg/dL (8.5-10.1); CARBON DIOXIDE 32 mmol/L (21-32); CHLORIDE 108 mmol/L (98-107); CREATININE 3.4 mg/dL (0.6-1.3); GLUCOSE 97 mg/dL (74-106); MAGNESIUM 1.9 mg/dL (1.8-2.4); PHOSPHORUS 4.1 mg/dL (2.5-4.9); POTASSIUM 3.7 mmol/L (3.5-5.1); SODIUM SERUM 146 mmol/L (136-145)
[2016-11-13 05:03] LABS: UREA NITROGEN, BLOOD 89 mg/dL (7-18)
--- NOTE | 2016-11-13 05:30 | NUR ---
ART INSTALLER: REASSESSED PT AFTER GIVEN ATIVAN AND MORPHINE WT GOOD EFFECT. NO EVIDENCE OF DISCOMFORT SUCH FACIAL GRIMACE, SR ON CAREER CENTER ADVISOR, BP NOW IMPROVED AT 140/69. ASLEEP AND ABLE TO OPEN EYES WT TACTILE STIMULI. TOLERATING VENT SETTINGS ORDERED WT NO ACUTE DISTRESS. WILL CONTINUE TO MONITOR.
[2016-11-13 05:41] LABS: BAND % (MANUAL) 1 % (0.0-5.0); EOSINOPHILS % (MANUAL) 1 % (0-4); LYMPHOCYTES % (MANUAL) 16 % (16-48); MONOCYTES % (MANUAL) 1 % (0-11.0); NEUTROPHILS % (MANUAL) 81 (42-76)
[2016-11-13] MEDS ORDERED: AMIODARONE 150 MG in IV D5W 100 ML IV ONE (08:00)
[2016-11-13] MEDS ORDERED: AMIODARONE 900 MG in IV D5W 482 ML IV PRN (08:00)
--- NOTE | 2016-11-13 08:00 | NUR ---
ICU/RN INITIAL NOTES, AM RECEIVED REPORT FROM NIGHT NURSE. PT RESTING IN BED. PT ALERT, DOES NOT FOLLOW COMMANDS. ON VENT SETTINGS ORDERED BY MD, NO ACUTE DISTRESS NOTED. PT ON TELE, SINUS. POSSIBLE WEANING TODAY. FAMILY IS IN THE PROCESS OF DECIDING BETWEEN COMFORT CARE AND TRACH. IV FLUIDS INFUSING ORDERED. GTUBE FEEDING INFUSING, TOLERATING WELL. ALL NEEDS WILL BE ATTENDED TO, SAFETY MEASURES TAKEN, BED IN LOW POSITION, SIDE RAILS UP, CALL LIGHT WITHIN REACH
[2016-11-13] MEDS: PANTOPRAZOLE 40 MG/PACK PACK GT SCH (08:41)
[2016-11-13] MEDS: LEVOTHYROXINE SODIUM 100 MCG TABLET PO SCH (08:41)
[2016-11-13] MEDS: FINASTERIDE (5 MG) 5 MG TABLET PO SCH (08:42)
[2016-11-13] MEDS: FOLIC ACID 1 MG TABLET PO SCH (08:42)
[2016-11-13] MEDS: ASCORBIC ACID 500 MG TABLET PO SCH (08:42)
[2016-11-13] MEDS: MEMANTINE HCL 5 MG TABLET PO SCH (08:42)
[2016-11-13] MEDS: HYDROGEL DRESSING 90 GM TUBE TP SCH (08:43)
[2016-11-13] MEDS: ASPIRIN 81 MG TAB.CHEW PO SCH (08:43)
[2016-11-13] MEDS: HEPARIN SODIUM, PORCINE 5000 UNITS/1 ML VIAL SQ SCH (08:43)
[2016-11-13] MEDS ORDERED: FUROSEMIDE 40 MG TABLET PO SCH ×2 (09:00)
[2016-11-13] MEDS ORDERED: AMLODIPINE BESYLATE 5 MG TABLET PO SCH (09:00)
[2016-11-13] MEDS ORDERED: FUROSEMIDE 20 MG/2 ML VIAL IV SCH (09:00)
[2016-11-13 09:33] LABS: ABG OXYGEN SATURATION 97.4 % (92.0-98.5); ABG PCO2 48.3 mmHg (35.0-45.0); ABG PH 7.374 (7.350-7.450); ABG PO2 110.3 mmHg (75.0-100.0); AaDO2 119.4 mmHg; COHb 1.7 % (0.5-1.5); MetHb 0.6 % (0.0-1.5); O2Hb 95.2 % (94.0-97.0); PEEP,BG 5 cm H2O; SITE, ABG Left Radial; VT, ABG 450 mL
--- NOTE | 2016-11-13 11:20 | NUR ---
ICU/RN: AT BEDSIDE, DISCUSSED PLAN OF CARE. FAMILY AGREES TO PROCEED AND CHANGE CODE STATUS TO DNR/DNI WITH EXTUBATION. AT THIS TIME PT VENT SETTINGS CHANGED TO CPAP 5, PRESSURE SUPPORT 12, FIO2 40%. WILL CONTINUE TO MONITOR.
[2016-11-13] MEDS ORDERED: MORPHINE SULFATE INJ 4 MG/ML DISP.SYRIN IV PRN (11:30)
[2016-11-13] MEDS ORDERED: MORPHINE SULFATE INJ 2 MG/ML DISP.SYRIN IV ONE (11:30)
--- NOTE | 2016-11-13 11:50 | NUR ---
RT PT EXTUBATED PER DR. OSHEA ORDERS, PT PLACED ON 4L NASAL CANNULA TOLERATING WELL. CODE STATUS CHANGED TO DNR/DNI, GOAL IS TO KEEP PT COMFORTABLE. WILL CONTINUE TO MONITOR. Addendum: 11/13/16 at 1157 by PABLO ALVARENGA RT Amended: Links added.
--- NOTE | 2016-11-13 11:50 | NUR ---
ICU/RN: PT EXTUBATED, ORDERED MORPHINE GIVEN FOR COMFORT. WILL CONTINUE TO MONITOR
--- NOTE | 2016-11-13 14:00 | NUR ---
ICU/RN: MARTHA AT BEDSIDE. FURTHER DISCUSSES COMFORT MEASURES AND CONFORMED WITH THE FAMILY THAT THIS IS WHAT THEY TRULY WANT. MORPHINE DRIP ORDERS WILL BE PLACED.
[2016-11-13] MEDS: MORPHINE SULFATE PF DRIP 250 MG in IV D5W 240 ML IV PRN (14:34)
--- NOTE | 2016-11-13 14:34 | NUR ---
ICU/RN: MORPHINE DRIP STARTED AT 2MG/HR. VERIFIED WITH ANOTHER RN. WILL TITRATE NEEDED TO MAINTAIN COMFORT ORDERED.
[2016-11-13] MEDS: LORAZEPAM INJ 2 MG/ML VIAL IV PRN (14:59)
--- NOTE | 2016-11-13 18:43 | NUR ---
ICU/RN: REPORT ENDORSED TO ALISA BUSTAMANTE. PT TRANSFERRED TO ROOM 319. NO BELONGINGS AT BEDSIDE. SON OF PT AT BEDSIDE. PT TRANSFERRED ON 6UNITS OF MORPHINE VIA MORPHINE DRIP. ALL NEEDS MET, SAFETY MEASURES TAKEN, BED IN LOW POSITION, SIDE RAILS UP at
--- NOTE | 2016-11-13 18:57 | NUR ---
GOLF CLUB HEAD INSPECTOR NOTES PATIENT TRANSFERRED FROM ICU AND ARRIVED TO UNIT @ 1635H VIA HIS BED ACCOMPANIED BY NURSE GAURAV WOODSON AND SON ELMA. HOB ELEVATED. PT IS "COMFORT MEASURES" ONLY. PT'S SON ELMA REFUSED SKIN ASSESSMENT AND JUST WANTED PT TO BE COMFORTABLE. PT HAS TRIPLE LUMEN PICC LINE ON FROY WITH MORPHINE DRIP RUNNING @ 6MG/HR AT THIS TIME AND TITRATE FOR COMFORT. PT HAS LINN CATHETER G# 16 WITH 20ML OF CLEAR YELLOW URINE TO BEDSIDE DRAINAGE BAG. BED PLACED ON LOW AND LOCKED POSITION WITH SIDE-RAILS UP APPROPRIATE. CALL LIGHT WITHIN REACH. SAFETY MEASURES MAINTAINED. ENDORSED TO HIDE HANDLER FOR EVELYNE.
--- NOTE | 2016-11-13 19:40 | NUR ---
RN INITIAL NOTES: RECEIVED REPORT FROM SERGEY BUSTAMANTE, PT IS A TRANSFER FROM ICU, S/P EXTUBATION TODAY, PT ON COMFORT MEASURES ONLY, SON DEL AT BEDSIDE, RECEIVED PT IN BED, PT IS OBTUNDED, NO FACIAL GRIMACE NOTED, ON ROOM AIR, RESPIRATION NOTED TO BE LABORED AND NOTED TO BE MOUTH BREATHER SO PT WAS PLACED ON NON REBREATHER MASK FOR COMFORT, PT HAS FROY PICC LINE WITH TLC, RECEIVING MORPHINE DRIP AT 6MG/HR. BLE AND BUE OFFLOADED. PT'S SON REFUSED SKIN ASSESSMENT. PT ON HEART MONITORING, CURRENTLY ON SINUS RHYTHM HR 77, SAFETY PRECAUTIONS FOR FALL INITIATED CALL LIGHT IN REACH WILL CONTINUE TO MONITOR
--- NOTE | 2016-11-13 19:41 | NUR ---
RN NOTES: WHEN CHECKED PT'S SPO2 IT WAS 35% ON RA, PT'S SON ELMA, REQUESTING FOR HIS FATHER TO BE COMFORTABLE, ESPECIALLY THE RESPIRATION, EXPLAINED TO THE SON ABOUT THE OXYGEN, BUT SON REQUESTING TO KEEP PATIENT'S SATURATION IN AN ACCEPTABLE RANGE, THAT'S WHY I STARTED PT ON 3L NC, BUT OXYGEN STILL 40'S, THEN SWITCH IOT TO NRB MASK UPON CHECKING THE SATURATION IT WAS 100%, RELAYED TO FITNESS CONSULTANT JOVANA, STATED IF PT'S OXYGENATION IS STABLE ON 100%, WE CAN TITRATE IT TO SIMPLE MASK AT 5-6L, WILL CONTINUE TO MONITOR
--- NOTE | 2016-11-13 19:42 | NUR ---
RN NOTES: RECEIVED PT WITH RECTAL TUBE IN PLACED,
--- NOTE | 2016-11-13 20:28 | NUR ---
RN NOTES: RECEIVED ANOTHER BAG OF MORPHINE FROM PHARMACY, WHEN RN WAS ABOUT TO PLACED THE MEDICATION IN THE PYXIS LOCK BOX, FOUND OUT THAT THE BOX WAS UNABLE TO ACCESS BECAUSE OF ITS PROXIMITY WITH THE OMNICELL, THERE'S ONLY LITTLE ROOM FOR THE DOOR TO OPEN AND IMPOSSIBLE TO PUT THE SAID MEDICATION, INFORMED PHARMACY, PRODUCTION PLANNING SUPERVISOR JOVANA CALLED ENGINEERING, FOR THE MEAN TIME THE MORPHINE MEDICATION WAS PLACED ON CHARGE NURSES DRAWER WITH LOCKED,
--- NOTE | 2016-11-13 20:30 | NUR ---
RN NOTES: PLACED PT ON SIMPLE MASK AT 5L/MIN, PT SPO2 95-98% WITH RR OF 12, NO FACIAL GRIMACE NOTED APPEARS CALM AND COMFORTABLE, WILL CONTINUE TO MONITOR
[2016-11-13] MEDS ORDERED: KEY,NONCONTROL,TO KEEP IN PYXI 1 EA MC ONE (20:33)
--- NOTE | 2016-11-13 20:35 | NUR ---
RN NOTES: SUCTION SET UP SECURED, SUCTION PT NEEDED, OBTAINED WHITISH THIN SECRETIONS SMALL IN AMOUNT, ORAL CARE PROVIDED AFTERWARDS, ALSO PLACED MEPILEX ON EACH SIDE OF THE FACE FOR PROTECTION THREAD FROM THE MASK COULD POSSIBLY CAUSE REDNESS OR SKIN IRRITATION
--- NOTE | 2016-11-14 | NUR ---
rn notes: pt in bed, not agitated no restlessness noted, breathing even and unlabored, will continue to monitor
[2016-11-14 04:00] VITALS: BP 126/69
--- NOTE | 2016-11-14 04:03 | NUR ---
rn notes: pt appears comfortable, no facial grimace noted, respiration non labored but shallow, rr 8, spo2 98% vs taken and recorded
[2016-11-14 06:21] LABS: BASOPHILS % (AUTO) 0.2 % (0.0-2.0); HEMATOCRIT 23 % (39-51); HEMOGLOBIN 7.6 g/dL (13.5-17.5); LYMPHOCYTES # (AUTO) 1.8 /CMM (0.8-4.8); LYMPHOCYTES % (AUTO) 13.6 % (20.0-44.0); MEAN CORPUSCULAR HEMOGLOBIN 31 PG (26.0-33.0); MEAN CORPUSCULAR HGB CONC 33 g/dl (31.0-36.0); MEAN CORPUSCULAR VOLUME 92 fL (80-96); MONOCYTES # (AUTO) 0.5 /CMM (0.1-1.30); MONOCYTES % (AUTO) 3.7 % (2.0-12.0); NEUTROPHILS # (AUTO) 10.9 /CMM (1.8-8.9); NEUTROPHILS % (AUTO) 82.5 % (43.0-81.0); PLATELET COUNT (AUTO) 153 /CMM (150-450); RDW COEFFICIENT OF VARIATION 19.4 (11.5-15.0); RED BLOOD CELL COUNT(AUTO) 2.49 MIL/uL (4.5-6.0); WHITE BLOOD COUNT (AUTO) 13.2 K/uL (4.3-11.0)
[2016-11-14 06:30] VITALS: BP 98/52
--- NOTE | 2016-11-14 06:30 | NUR ---
RN NOTES: NOTED FACIAL GRIMACE, PT APPEARS TO BE IN PAIN, VS TAKEN AND RECORDED, MORPHINE DRIP WAS INCREASED TO 8MG/HR AT THIS TIME, INFORMED BEVERAGE SPECIALIST JOVANA, ORDER IS TO TITRATE NEEDED FOR COMFORT
[2016-11-14 06:44] LABS: ALANINE AMINOTRANSFERASE 25 U/L (12-78); ALBUMIN 2.4 g/dL (3.4-5.0); ALKALINE PHOSPHATASE 100 U/L (46-116); ASPARTATE AMINOTRANSFERASE 26 U/L (15-37); BILIRUBIN,TOTAL 0.4 mg/dL (0.2-1.0); CALCIUM, SERUM 8.2 mg/dL (8.5-10.1); CARBON DIOXIDE 29 mmol/L (21-32); CHLORIDE 110 mmol/L (98-107); CREATININE 4.1 mg/dL (0.6-1.3); GLUCOSE 79 mg/dL (74-106); PHOSPHORUS 5.3 mg/dL (2.5-4.9); POTASSIUM 4.3 mmol/L (3.5-5.1); SODIUM SERUM 149 mmol/L (136-145); TOTAL PROTEIN, SERUM 6.5 g/dL (6.4-8.2)
--- NOTE | 2016-11-14 06:54 | NUR ---
ms rn closing notes: pt in bed,alert but unable to follow command, remains on simple mask 4L/min spo2 remains 98-100%, pt appears calm and comfortable, no facial grimace noted, not agitated nor restless, cortez picc line remains patent and flushing well,with tlc, infusing with morphine drip at 8mg/hr, rr 10, read catheter remains in placed with very low output, flexi seal in placed, pt currently on SINUS RHYTHM HR 71, safety precautions for fall remains engaged, call light in reach, needs attended, will endorse to day rn for rodrigo.
[2016-11-14 06:59] LABS: UREA NITROGEN, BLOOD 97 mg/dL (7-18)
--- NOTE | 2016-11-14 07:20 | NUR ---
RN NOTES PT IS IN BED, RESTING WITH NO SIGNS OF DISTRESS OR PAIN. SIMPLE MASK ON 4ML/HR OF 02, SATING 98%. FROY PICC LINE CONNECTED TO MORPHINE DRIP, RUNNING AT 8ML/HR. LINN CATHETER AND FLEXI SEAL ARE BOTH IN PLACE. SAFETY MEASURES AND FALL PRECAUTIONS ARE IN PLACE. WILL CONTINUE TO MONITOR.
--- NOTE | 2016-11-14 07:29 | NUR ---
rn notes: total volume infused for morphine drip is 72.7ml, cleared with rn kary
[2016-11-14 08:00] VITALS: BP 95/47
[2016-11-14] MEDS: HYDROGEL DRESSING 90 GM TUBE TP SCH (08:47)
[2016-11-14] MEDS ORDERED: KEY,NONCONTROL,TO KEEP IN PYXI 1 EA MC ONE ×4 (08:50→15:05)
[2016-11-14] MEDS: MORPHINE SULFATE PF DRIP 250 MG in IV D5W 240 ML IV PRN (15:03)
--- NOTE | 2016-11-14 15:20 | NUR ---
RN NOTE MORPHINE IV DRIP BAG WAS CHANGED. 61.2 ML VOLUME WAS INFUSED. 100 ML WAS WASTED OF PREVIOUS BAG WITH KARLA RN WITNESS. IV RATE STILL SET AT 8ML/HR. PT SHOWS NO SIGNS OF DISTRESS OR DISCOMFORT.
[2016-11-14 16:00] VITALS: BP 104/54
--- NOTE | 2016-11-14 17:00 | NUR ---
PTS FAMILY REQUESTS TO HAVE DIRECTOR VISUAL COME VISIT PT WITHIN THE NEXT FEW DAYS. NO PASTORS WERE AVAILABLE AT THIS TIME. WILL ENDORSE TO TRAINING DEVELOPMENT MANAGER RN.
--- NOTE | 2016-11-14 18:48 | NUR ---
RN NOTES PT IS IN BED, UNABLE TO FOLLOW COMMANDS. FAMILY IS AT BEDSIDE. PT ON O2 VIA SIMPLE MASK AT 4L, SATING 98%. FROY PICC LINE RUNNING MORPHINE DRIP AT 8ML/HR, NO SIGNS OF PAIN OR DISCOMFORT NOTED. LINN CATHETER IN PLACE WITH 20 ML OUTPUT, RECTAL TUBE IN PLACE WITH 40 ML OUTPUT. TELE LEADS SHOW SINUS RHYTHM 73 BPM. SAFETY MEASURES ARE IN PLACE, CALL LIGHT IS IN REACH. WILL ENDORSE TO CIGAR MAKING SUPERVISOR RN FOR CONTINUITY OF CARE.
--- NOTE | 2016-11-14 19:16 | NUR ---
RN NOTES MORPHINE DRIP VOLUME INFUSED AFTER BAG CHANGE WAS 30.1ML, TOTAL VOLUME INFUSED TODAY WAS 93.1 ML. VOLUME ACCUMULATED WAS CLEARED WITH JULISA RN WITNESS.
--- NOTE | 2016-11-14 19:30 | NUR ---
RN NOTES: RECEIVED PATIENT ON COMFORT MEASURE, OBSTUNDED,EYE CLOSED,NO RESPOND TO PAINFUL STIMULI OR VERBAL COMMAND,O2 AT 4L/MINUTE VIA FACIAL MASK, ON LINN CATH WITH VERY SCANTY AMOUNT OF URINE OUTPUT , DARK YELLOWISH IN COLOR, ON RECTAL TUBE, NO OUTPUT,PICC LINE FROY WITH MORPHINE DRIP ONGOING AT 8MG/HR,SON AND GRANDSON PRESENT AT BED SIDE,EXPLAINED TO THEM UPON ENDORSEMENT RN WAS NOT ABLE TO FIND A ELECTRO MECHANICAL TECHNICIAN AND THEY SAY ITS OK, FAMILY IS VERY AWARE OF THE PATIENT STATUS RIGHT NOW, ON CLOSE VISUAL CHECK sPO2 -92% HR-75.
[2016-11-14 20:00] VITALS: BP 82/42
--- NOTE | 2016-11-14 20:00 | NUR ---
RN NOTES: PATIENT FAMILY LEFT AND GIVE INSTRUCTION TO CALL THEM IF V/S START TO DETERIORATE MORE,LATEST BP-82/42,WHEN ASKED WHAT MORTUARY OF CHOICE THEY HAVE, SON EXPLAINED THEY PREFER TO DO CREMATION.WILL KEEP DOING COMFORT MEASURE AND UPDATE THE FAMILY.
--- NOTE | 2016-11-14 21:00 | NUR ---
RN NOTES: PATIENT KEPT ON CLOSE VISUAL CHECK,HEART RATE INCREASE TO 133, PUT IN COMFORTABLE POSITION,SPO2-94-95% ON O2 AT 4L/MIN VIA FACIAL MASK,NO FACIAL GRIMACE NOTED DURING POSITION CHANGE,CM NOTIFIED,WILL CONTINUE TO MONITOR,NO BLUISH DISCOLORATION NOTED ON BUE AND BLE,WARM TO TOUCHED,EDEMA ON BLUE,BLE AND SCROTAL AREA, ABDOMINAL AREA ENLARGED DUE TO ASCITES.
--- NOTE | 2016-11-14 23:34 | NUR ---
RN NOTES: ON CLOSE FREQUENT VISUAL CHECK,HR STARTED TO DECREASE, PRESENT RATE-75,SPO2 FLUCTUATE TO 89 TO 90%, O2 TITRATED TO 5L/MIN, SPO2 RANGE 92-93%, KEPT MONITORED, SON CALLED AT 2300, NOTIFY ABOUT THE PATIENT STATUS.
--- NOTE | 2016-11-15 00:18 | NUR ---
RN NOTES: PATIENT IS SLEEPING COMFORTABLY, HR-75, RESPIRATION 5/MINUTE,SPO2-95% O2 AT 5L/MIN.KEPT MONITORED.
--- NOTE | 2016-11-15 02:28 | NUR ---
RN NOTES; PATIENT SLEEPING COMFORTABLY, NO BLUISH DISCOLORATION NOTED ON UPPER AND LOWER EXTREMITY,SPO2-97% WITH 02 AT 5L/MIN VIA FACIAL MASK,HR-74, KEPT ON CLOSE WATCH.COMFORT MEASURE DONE.
[2016-11-15 06:00] VITALS: BP 89/44
--- NOTE | 2016-11-15 07:00 | NUR ---
RN NOTES: MORNING CARE DONE, INCONTINENT CHANGE, URINE OUTPUT =15ML AND FLEXISEAL OUTPUT IS 125 ML, ENDORSED PATIENT ON MORPHINE DRIP AT 8MG/HR,TOTAL VOLUME RECEIVED IN GLOVE BRUSHER=95.3ML,CLEARED VOLUME WITNESS BY RN(DERIAN)REMAINING AMOUNT ENDORSED IS 72.5ML.
--- NOTE | 2016-11-15 07:10 | NUR ---
RECEIVED PT IN BED, RESTING COMFORTABLY. PT RECEIVING O2 VIA SIMPLE MASK AT 4 L SATING AT 98%. FROY PICC LINE RUNNING MORPHINE DRIP AT 8ML/HR. PT SHOWS NO SIGNS OF DISTRESS OR PAIN. SAFETY MEASURES ARE IN PLACE. WILL CONTINUE TO MONITOR.
[2016-11-15 08:00] VITALS: BP 73/37
[2016-11-15] MEDS: HYDROGEL DRESSING 90 GM TUBE TP SCH (08:36)
[2016-11-15] MEDS ORDERED: KEY,NONCONTROL,TO KEEP IN PYXI 1 EA MC ONE ×4 (14:44→18:57)
[2016-11-15] MEDS: MORPHINE SULFATE PF DRIP 250 MG in IV D5W 240 ML IV PRN (15:49)
[2016-11-15 16:00] VITALS: BP 78/44
--- NOTE | 2016-11-15 16:00 | NUR ---
MORPHINE BAG WAS CHANGED. 69.1 ML VOLUME INFUSED, PREVIOUS MORPHINE BAG WASTED 54 ML WITH MADAN RN WITNESS. MORPHINE DRIP TITRATED TO 10ML/HR AND A DOSE OF ATIVAN WAS GIVEN FOR SOB.
[2016-11-15] MEDS: LORAZEPAM INJ 2 MG/ML VIAL IV PRN (16:15)
--- NOTE | 2016-11-15 17:15 | NUR ---
PTS HEART BEAT HAS STOPPED AT 1715, PRONOUNCED BY LIVING SPECIALIST TEDDY. MARTHA BAILEY, ATTENDING PHYSICIAN WAS NOTIFIED. MORPHINE DRIP AND OXYGEN WERE STOPPED.
--- NOTE | 2016-11-15 19:10 | NUR ---
240 ML OF MORPHINE BAG WAS WASTED WITH KARLA BUSTAMANTE WITNESS.
--- NOTE | 2016-11-15 19:15 | NUR ---
POST MORTEM CARE WAS PERFORMED. LINN CATHETER, FLEXI SEAL, AND PICC LINE WERE REMOVED.
== END 2016-11-15 20:30 | disposition expired | DRG 870 ==
LOC: ER 22:20 → ICU 11-02 01:55 → MED 11-13 18:40
PROVIDERS: ADMIT Nurse Practitioner Acute Care; ATTEND Nurse Practitioner Acute Care
PROC: 0BH17EZ Insertion of Endotracheal Airway into Trachea, Via Natural or Artificial Opening (ICD-10-PCS; principal; 2016-11-02)
PROC: 5A1955Z Respiratory Ventilation, Greater than 96 Consecutive Hours (ICD-10-PCS; 2016-11-02)
PROC: 02HV33Z Insertion of Infusion Device into Superior Vena Cava, Percutaneous Approach (ICD-10-PCS; 2016-11-02)
PROC: B548ZZA Ultrasonography of Superior Vena Cava, Guidance (ICD-10-PCS; 2016-11-02)
DX: A41.9 Sepsis, unspecified organism (principal); I21.4 Non-ST elevation (NSTEMI) myocardial infarction; N17.0 Acute kidney failure with tubular necrosis; I26.99 Other pulmonary embolism without acute cor pulmonale; J18.9 Pneumonia, unspecified organism; R65.21 Severe sepsis with septic shock; I50.33 Acute on chronic diastolic (congestive) heart failure; J96.01 Acute respiratory failure with hypoxia; J96.02 Acute respiratory failure with hypercapnia; G93.41 Metabolic encephalopathy; I13.0 Hypertensive heart and chronic kidney disease with heart failure and stage 1 through stage 4 chronic kidney disease, or unspecified chronic kidney disease; J98.11 Atelectasis; B35.3 Tinea pedis; N17.9 Acute kidney failure, unspecified; E87.0 Hyperosmolality and hypernatremia; E87.2 Acidosis; I48.92 Unspecified atrial flutter; I47.1 Supraventricular tachycardia; N39.0 Urinary tract infection, site not specified; R18.8 Other ascites; N18.3 Chronic kidney disease, stage 3 (moderate); L89.159 Pressure ulcer of sacral region, unspecified stage; Z51.5 Encounter for palliative care; Z66 Do not resuscitate; D69.6 Thrombocytopenia, unspecified; F03.90 Unspecified dementia, unspecified severity, without behavioral disturbance, psychotic disturbance, mood disturbance, and anxiety; E11.22 Type 2 diabetes mellitus with diabetic chronic kidney disease; D63.8 Anemia in other chronic diseases classified elsewhere; D17.9 Benign lipomatous neoplasm, unspecified; R65.20 Severe sepsis without septic shock; B96.20 Unspecified Escherichia coli [E. coli] as the cause of diseases classified elsewhere; E03.9 Hypothyroidism, unspecified; E78.5 Hyperlipidemia, unspecified; E88.81 Metabolic syndrome and other insulin resistance; F09 Unspecified mental disorder due to known physiological condition; I25.2 Old myocardial infarction; I70.0 Atherosclerosis of aorta; I87.2 Venous insufficiency (chronic) (peripheral); I87.8 Other specified disorders of veins; K21.9 Gastro-esophageal reflux disease without esophagitis; K59.00 Constipation, unspecified; K42.9 Umbilical hernia without obstruction or gangrene; Y95 Nosocomial condition; Z79.82 Long term (current) use of aspirin; N40.0 Benign prostatic hyperplasia without lower urinary tract symptoms; Z79.899 Other long term (current) drug therapy; Z86.718 Personal history of other venous thrombosis and embolism; I70.8 Atherosclerosis of other arteries; L89.152 Pressure ulcer of sacral region, stage 2; N50.89 Other specified disorders of the male genital organs; L89.621 Pressure ulcer of left heel, stage 1; L89.611 Pressure ulcer of right heel, stage 1; R19.7 Diarrhea, unspecified
CPT/HCPCS: 31720; 36415; 36569; 36600; 70450-TC; 71010-TC; 71250-TC; 76770-TC; 80048-TC; 80053-TC; 80061-TC; 80076-TC; 80202-TC; 81000-TC; 82140-TC; 82272-TC; 82550-TC; 82553-TC; 82570-TC; 82803-TC; 82962-TC; 83605-TC; 83735-TC; 83880; 83970; 84100-TC; 84132-TC; 84155; 84155-TC; 84165; 84300-TC; 84439-TC; 84443-TC; 84484-TC; 85025-TC; 85027-TC; 85385-TC; 85730-TC; 86850-TC; 87040-TC; 87070-TC; 87081-TC; 87086-TC; 87186-TC; 87400; 93307-TC; 93970-TC; 94002-TC; 94003-TC; 94640-TC; 94762-TC; 94799-TC; 99082-TC; A4216; A4217; A4606; A6248; A6253; A6402; A6403; C1751; G0480; J0282; J0692; J1644; J1815; J1940; J1956; J2060; J2270; J2274; J2405; J3370; J3475; J3480; J3490; J7030; J7040; J7050; J7060; P9047; Z7610